=== PATIENT | female | born 1935 | race Caucasian/White ===

== ENCOUNTER → 2018-03-11 | Outpatient (CLI) | payer MEDICARE | END | disposition home or self-care (01) | LOC: LABPAT 09:44 | PROVIDERS: ATTEND Orthopaedic Surgery | DX: Z01.812 Encounter for preprocedural laboratory examination (principal); M16.11 Unilateral primary osteoarthritis, right hip | CPT/HCPCS: 87070 ==

== ENCOUNTER 2018-03-18 06:38 | Inpatient (IN) | payer MEDICARE, OTHER ==
[2018-03-11 12:40] VITALS: BMI 28.2
--- NOTE | 2018-03-17 08:20 | HP ---
HISTORY AND PHYSICAL REASON FOR ADMISSION: Surgery 03/18/2018. HISTORY OF PRESENT ILLNESS: Elena Bingham is an 82-year-old patient seen with symptomatic right hip osteoarthritis. We discussed options. She elected to proceed with right total hip arthroplasty. Consent regarding procedure was obtained. Medical clearance was provided by Dr. Baez's office. PAST MEDICAL HISTORY: Hypothyroidism, hypertension. PAST SURGICAL HISTORY: Left total hip arthroplasty. MEDICATIONS: Levothyroxine, nortriptyline, Ziac. ALLERGIES: PENICILLIN, SULFA, IODINE. SOCIAL HISTORY: Patient denies tobacco. PHYSICAL EXAMINATION: Physical evaluation of the right hip, there is a limited range of motion with severe pain. There is diffuse tenderness about the hip girdle. Positive impingement sign. Straight leg raise negative. Distal neurovascular exam is intact. RADIOGRAPHS: Radiographs of the right hip revealed severe osteoarthritic changes. IMPRESSION: 1. Right hip osteoarthritis. 2. Hypertension. 3. Hypothyroidism. PLAN: Right total hip arthroplasty. Surgery scheduled for 03/18/2018. MMODL / IJN: [id number] /
[~2018-03-18 06:38] MED LIST: ACETAMINOPHEN TAB 500 MG TAB PO ONE; HYDROmorphone 1 MG/ML 1 ML SYRINGE IVP PRN; LIDOCAINE 1% 20 ML VIAL (10MG/ML) FOR IV START INTRADERMA PRN; MELOXICAM 7.5 MG TAB PO ONE; ONDANSETRON 4 MG/2 ML VIAL IVP ONE; TRANEXAMIC ACID 1,000 MG in SODIUM CHLORIDE 0.9% 50 ML IVPB ONE; VANCOMYCIN 1,250 MG in SODIUM CHLORIDE 0.9% 250 ML IVPB ONE
[2018-03-18] MEDS: LACTATED RINGERS 1,000 ML IV SCH ×3 (07:52→21:39)
[2018-03-18] MEDS ORDERED: PROPOFOL 10 MG/ML 20 ML VIAL IV ONE (09:58)
[2018-03-18] MEDS ORDERED: SODIUM CHLORIDE 0.9% 100 ML BAG ONE (09:58)
[2018-03-18] MEDS ORDERED: diphenhydrAMINE 50 MG/ML 1 ML VIAL ONE (09:58)
[2018-03-18] MEDS ORDERED: ePHEDrine SULFATE/0.9% NACL/PF 50 MG/5 ML SYRINGE IV ONE (09:58)
[2018-03-18] MEDS ORDERED: MIDAZOLAM 2 MG/2 ML VIAL ONE (09:58)
[2018-03-18] MEDS ORDERED: fentaNYL (PF) 50 MCG/ML 2 ML AMP ONE (09:58)
[2018-03-18] MEDS ORDERED: TRANEXAMIC ACID 1,000 MG/10 ML VIAL ONE (09:58)
[2018-03-18] MEDS ORDERED: CLINDAMYCIN 1,800 MG in SODIUM CHLORIDE 0.9% IRRIGATIO 3,000 ML IRRIGATION ONE (10:28)
[2018-03-18] MEDS: ROPIVACAINE 246.25 MG, EPINEPHrine 0.5 MG, KETOROLAC 30 MG, cloNIDine HCL/PF 80 MCG, WA... MISCELLANE ONE ×10 (10:39→11:21)
[2018-03-18] MEDS ORDERED: LACTATED RINGERS 1,000 ML IV ONE ×2 (11:11)
[2018-03-18] MEDS ORDERED: HYDROmorphone 1 MG/ML 1 ML SYRINGE IVP PRN ×3 (11:42)
[2018-03-18] MEDS ORDERED: ONDANSETRON 4 MG/2 ML VIAL IVP PRN (11:42)
[2018-03-18] MEDS ORDERED: NALOXONE 0.4 MG/ML 1 ML VIAL IV PRN (11:42)
[2018-03-18] MEDS ORDERED: HYDROcodone/APAP 7.5-325MG 1 EACH TAB PO PRN (11:42)
[2018-03-18] MEDS ORDERED: traMADol 50 MG TAB PO PRN (11:42)
--- NOTE | 2018-03-18 11:42 | P.OP ---
Date of Procedure: 03/18/18 Preoperative Diagnosis: Right hip osteoarthritis Postoperative Diagnosis: Right hip osteoarthritis Procedure(s) Performed: Direct anterior right total hip arthroplasty Implants: 1. Depuy Corail size 12 standard collar press-fit femoral stem 2. Depuy pinnacle 52 mm press-fit acetabular shell 3. Depuy pinnacle polyethylene acetabular liner neutral 36 mm ID 52 mm OD 4. Depuy metal femoral head 36 mm -2 Anesthesia: local, spinal Surgeon: Bismark Cortes Cryptoanalysis Teacher #1: Eric King Estimated Blood Loss (ml): 125 Pathology: other (Femoral head) Condition: stable Disposition: PACU Indications for Procedure: 82-year-old patient seen with symptomatic right hip osteoarthritis. After treatment options were discussed, she elected to proceed with total hip arthroplasty. Operative Findings: See description of procedure Description of Procedure: The patient was taken to the operative suite. Patient underwent a final anesthetic by the department of anesthesia. Patient was then transferred to the [place] table. Patient was given preoperative IV antibiotics and TXA. Both lower extremities were placed in standard leg spars. The hip was then prepped and draped in the normal sterile orthopedic fashion. A standard anterior incision was made beginning 3 cm lateral and 1 cm distal to the ASIS extending 10 cm. Dissection was then carried down through the subcutaneous soft tissues down to the fascia overlying the tensor fascia bob. An incision was now made through the fascia. Careful dissection was taken down exposing the tensor fascia bob muscle. A Cobra retractor was now placed along the medial femoral neck and a second one along the lateral femoral neck. The venous circumflex vessels were now identified, cauterized and clipped. We identified the anterior hip capsule. An incision was made through the hip capsule along the lateral border. I performed a partial anterior capsulectomy. Retractors were now placed around the femoral neck itself. A femoral neck cut was now made with a sagittal saw. It was completed with an osteotome at the lateral neck area. The femoral head was now removed without difficulty. There was advanced osteoarthritis of both the femoral head and acetabulum. The extremity was now rotated to 45 of external rotation. It was locked in position. Residual labrum was now debrided out. Serial reaming was performed of the acetabulum while Roge ALMANZA assisted holding an anterior retractor for exposure. Once we reached the appropriate size and a trial was position and fit nicely. The appropriate size was now chosen opened and made available. It was introduced into the acetabulum without difficulty. The C-arm/fluoroscopy was now brought into the operative field. We made sure we had a true AP pelvic view. We now under direct C-arm/fluoroscopy introduced into the acetabular component with appropriate version and inclination. I held the cup in appropriate position well Roge ALMANZA used a mallet to seat the acetabular component. I noted the component now to be well seated and stable. Acetabular cup introduce her was removed. The C-arm was pulled back. An appropriate liner was introduced and clicked into position. It was felt to be stable. At this point retractors were removed. The extremity was now placed into 120 external rotation with no traction. The leg was now dropped to the ground and adducted. Appropriate retractors were now positioned along the proximal femur. We also placed our femoral look into position. Additional capsular releasing was performed to gain access to the proximal femur. We now used a box osteotome. A canal finder was now utilized. Serial broaching was now performed with the assistance of Roge ALMANZA tapping the broaches down with a mallet while held the broach in appropriate rotation and position. This was done until we reached the appropriate size with good overall rotational stability. Appropriate calcar planing was performed. A trial head/neck was placed into position. The hip was now reduced. The C-arm/fluoroscopy was brought back into the operative field. A spot film was obtained of the nonoperative hip. A spot film was obtained of the trial components. Overlays were performed, we noted good overall alignment and positioning for determining leg length. The C- arm/fluoroscopy was pulled back. Retractors were repositioned and the hip was dislocated. The leg was again taken down to the ground and adducted. Appropriate retractors were repositioned as well as the femoral hook. All trial components were removed. The femoral implant was opened along with the femoral head. The femoral implant was introduced on the appropriate handle into our pre-broached area. I held the component position well Roge ALMANZA used a mallet to seat the femoral component. The femoral component was now noted to be well seated and stable.. The femoral head was introduced with good positioning and fixation noted. Retractors were now removed. The hip was now reduced. There appeared be good positioning of the hip confirmed on intraoperative fluoroscopy. Spot films were obtained to document this. A second gram of TXA was given. The deep and superficial soft tissues were infiltrated with local analgesic. Bipolar cautery had been utilized intermittently through the procedure for hemostasis. The wound was irrigated copiously with pulse lavage mechanical irrigation. The fascia was repaired with Vicryl suture. The subcutaneous soft tissues were repaired in layers with Vicryl suture. The skin was approximated with pernio/Dermabond. Sterile dressings were applied. Patient was then awakened, transferred to a bed and taken to recovery in stable condition. Roge ALMANZA assisted with the complex procedure.
--- NOTE | 2018-03-18 13:36 | FL ---
Fluoroscopy HISTORY: Right hip replacement 7 seconds fluoroscopy time supplied to the referring clinician. 1 intraoperative C-arm images docume nt the procedure. See dictated report from orthopedic surgery.
--- NOTE | 2018-03-18 14:05 | P.CONS ---
History of Present Illness - Reason for Consult Consult date: 03/18/18 Medical management Requesting physician: Bimsark Cortes - Chief Complaint Status post right total hip arthroplasty - History of Present Illness This is a 82-year-old female, patient of Dr. Baez. She has a known past medical history of hypertension, hypothyroidism, anxiety, depression and osteoarthritis. Patient underwent a direct anterior right total hip arthroplasty with Dr. Cortes today. She tolerated surgery well no consultations. Estimated blood loss 125 mL. She is reporting some right hip pain in which she received a pain pill. She denies any chest pain or shortness of breath. Denies any nausea or vomiting. Denies any fever chills or sweats. Reports a bowel movement yesterday. Denies any burning with urination. We have been consulted for medical management during patient's hospitalization. Review of Systems Please refer to HPI otherwise unremarkable Past Medical History Past Medical History: Eye Disorder, Hypertension, Osteoarthritis (OA), Thyroid Disorder Additional Past Medical History / Comment(s): 03/08/15 Pt admitted to floor with total L hip arthroplasty. Other HX: GLASSES DAILY USE, ARTHRITIS LOWER BACK & HIPS History of Any Multi-Drug Resistant Organisms: None Reported Past Surgical History: Joint Replacement, Orthopedic Surgery Additional Past Surgical History / Comment(s): 03/08/15 Total L hip arthroplasty. Other SX: ORIF LT WRIST 2008? Past Anesthesia/Blood Transfusion Reactions: Previous Problems w/ Anesthesia Additional Past Anesthesia/Blood Transfusion Reaction / Comm: HARD TO WAKE UP Past Psychological History: Anxiety Additional Psychological History / Comment(s): Pt resides with her spouse of 59 yrs. She just recently started using a walker. She is independent. She drives. Smoking Status: Never smoker Past Alcohol Use History: None Reported - Past Family History Brother(s) Family Medical History: Cancer Sister(s) Family Medical History: Cancer Father Family Medical History: Cancer Additional Family Medical History / Comment(s): LEUKEMIA Mother Family Medical History: Myocardial Infarction ([place]) Medications and Allergies Home Medications Medication Instructions Recorded Confirmed Type Ascorbic Acid [Vitamin C with Brea 500 mg PO DAILY 03/01/15 03/18/18 History Hips] Cholecalciferol [Vitamin D3] 2,000 unit PO DAILY 03/01/15 03/18/18 History Levothyroxine Sodium [Synthroid] 50 mcg PO DAILY 03/01/15 03/18/18 History Nortriptyline [Pamelor] 25 mg PO DAILY 03/01/15 03/18/18 History Ubidecarenone [Co Q-10] 200 mg PO DAILY 03/01/15 03/18/18 History chlordiazePOXIDE HCl [Librium] 25 mg PO DAILY 03/01/15 03/18/18 History [place]-3 Fatty Acids [[place]-3] 1,000 mg PO DAILY 03/08/15 03/18/18 History Acetaminophen [Tylenol Extra 500 mg PO DIRECTED PRN 03/11/18 03/18/18 History Strength] Bisoprolol-Hctz 10-6.25 mg [Ziac 1 each PO DAILY 03/11/18 03/18/18 History 10-6.25] Cyanocobalamin [Vitamin B-12] 400 mcg PO DAILY 03/11/18 03/18/18 History Losartan Potassium [Cozaar] 100 mg PO DAILY 03/11/18 03/18/18 History Magnesium 400 mg PO DAILY 03/11/18 03/18/18 History Multivitamins, Thera [Multivitamin 1 tab PO DAILY 03/11/18 03/18/18 History (formulary)] Vitamin C/Biotin [Hair, Skin and 1 tab PO DAILY 03/11/18 03/18/18 History Nails] Allergies Allergy/AdvReac Type Severity Reaction Status Date / Time iodine Allergy Anaphylaxis Verified 03/18/18 07:47 Penicillins Allergy Anaphylaxis Verified 03/18/18 07:47 - Almost Sulfa (Sulfonamide Allergy Anaphylaxis- Verified 03/18/18 07:47 Antibiotics) Almost amlodipine [From [facility]] AdvReac Unknown Unknown Verified 03/18/18 07:47 MULTIPLE DRUG ALLERGIES Allergy Severe STATES Uncoded 03/18/18 07:47 (UNKNOWN) SEVERY REACTIONS TO SEVERAL MEDS WITH UNKNOWN NAMES. Physical Exam Vitals: Vital Signs Temp Pulse Resp BP Pulse Ox 03/18/18 12:57 68 18 115/56 99 03/18/18 12:41 71 18 111/52 100 03/18/18 12:26 73 18 130/63 99 03/18/18 12:10 67 16 130/63 98 03/18/18 11:56 98.5 F 63 18 159/84 98 03/18/18 07:50 97.6 F 74 18 191/82 95 Intake and Output 03/17/18 03/18/18 03/18/18 22:59 06:59 14:59 Intake Total 1451 Output Total 125 Balance 1326 Intake: IV 1451 Output: Estimated Blood Loss 125 Head normocephalic Neck supple Lungs clear to auscultation bilaterally no wheezing or crackles Heart regular rate and rhythm S1-S2, no rub or gallop Abdomen is soft nontender nondistended positive bowel sounds no hepatosplenomegaly Extremities no edema. Right hip dressing clean dry and intact. Ice pack in place. No calf tenderness. Patient is able to wiggle toes on the right foot. No numbness reported Neuro alert and orientated to 3 Assessment and Plan Assessment: 1. Osteoarthritis of the right hip status post direct anterior right total hip arthroplasty. Continue pain control per orthopedic protocol. Continue Lovenox for DVT prophylaxis. Continue with orthopedic postop orders with PT OT 2. Essential hypertension: Blood pressure stable resume Ziac and losartan. Parameters place around the Ziac to hold for systolic blood pressure less than 120 3. Hypothyroidism continue the Synthroid 4. Generalized anxiety disorder continue Librium 5. Depression continue the nortriptyline GI prophylaxis Pepcid and DVT prophylaxis Lovenox Check CBC and CMP in a.m. Thank you for this consultation. We will continue to follow along during patient's hospitalization Time with Patient: Greater than 30 (Greater than 60% of the total time spent in counseling and coordination of care.I performed an examination of the patient and discussed their management with the physician Anchorman. I have reviewed the Physician Anchorman's notes and agree with the documented findings and plan of care)
[2018-03-18] MEDS: LEVOTHYROXINE 50 MCG TAB PO SCH (15:18)
--- NOTE | 2018-03-18 16:18 | XR ---
Right hip HISTORY: Status post right hip arthroplasty Single frontal view of the right hip Patient is status post right hip arthroplasty. Lucency in the soft tissues is compatible with postop state. There is no fracture or dislocation. Anatomic alignment is present. IMPRESSION: Orthopedic follow-up.
[2018-03-18] MEDS: HYDROcodone/APAP 7.5-325MG 1 EACH TAB PO PRN (18:29)
[2018-03-18] MEDS: SENNOSIDES-DOCUSATE SODIUM 1 EACH TAB PO SCH (20:27)
[2018-03-19] MEDS: HYDROcodone/APAP 7.5-325MG 1 EACH TAB PO PRN (00:38)
[2018-03-19] MEDS: LACTATED RINGERS 1,000 ML IV SCH ×3 (02:58→21:43)
[2018-03-19] MEDS: LEVOTHYROXINE 50 MCG TAB PO SCH (06:24)
[2018-03-19 07:02] LABS: Basophils % (A) 0 %; Eosinophils # (A) 0.1 k/uL (0-0.7); Eosinophils % (A) 1 %; HGB 11.3 gm/dL (11.4-16.0); Lymphocytes # (A) 1.6 k/uL (1.0-4.8); Lymphocytes % (A) 15 %; MCH 30.1 pg (25.0-35.0); MCHC 32.4 g/dL (31.0-37.0); MCV 92.9 fL (80.0-100.0); Mean Platelet Volume 6.8; Monocytes # (A) 0.6 k/uL (0-1.0); Monocytes % (A) 6 %; Neutrophils % (A) 77 %; Platelet Count 218 k/uL (150-450); RBC 3.76 m/uL (3.80-5.40); RDW 13.3 % (11.5-15.5); WBC 10.3 k/uL (3.8-10.6)
[2018-03-19 07:16] LABS: Albumin 2.9 g/dL (3.5-5.0); Calcium 8.8 mg/dL (8.4-10.2); Potassium 4.3 mmol/L (3.5-5.1); Total Bilirubin 1.2 mg/dL (0.2-1.3); Total Protein 5.3 g/dL (6.3-8.2)
[2018-03-19] MEDS: MAGNESIUM OXIDE 400 MG TAB PO SCH (08:35)
[2018-03-19] MEDS: CYANOCOBALAMIN 500 MCG TAB PO SCH (08:36)
[2018-03-19] MEDS: CHOLECALCIFEROL 1,000 UNIT TAB PO SCH (08:36)
[2018-03-19] MEDS: LOSARTAN 50 MG TAB PO SCH (08:37)
[2018-03-19] MEDS: ENOXAPARIN 40 MG/0.4 ML SYRINGE SQ SCH ×2 (08:37→10:25)
[2018-03-19] MEDS: chlordiazePOXIDE 25 MG CAP PO SCH (08:38)
[2018-03-19] MEDS: NORTRIPTYLINE 25 MG CAP PO SCH (08:38)
[2018-03-19] MEDS ORDERED: NON-FORMULARY DRUG (Ubidecarenone [Co Q-10] 200 MG) PO SCH (09:00)
[2018-03-19] MEDS ORDERED: BISOPROLOL-HCTZ 10-6.25 MG 1 EACH TAB PO SCH (09:00)
[2018-03-19] MEDS ORDERED: FAMOTIDINE 20 MG TAB PO SCH (09:00)
[2018-03-19] MEDS ORDERED: NON-FORMULARY DRUG (Omega-3 Fatty Acids [Omega-3] 1,000 MG) PO SCH (09:00)
[2018-03-19] MEDS: PANTOPRAZOLE 40 MG/10 ML VIAL IVP SCH (11:38)
--- NOTE | 2018-03-19 12:37 | P.PN ---
Subjective Progress Note Date: 03/19/18 Principal diagnosis: Status post right total hip arthroplasty Patient is here today resting in her hospital bed, her is present at bedside. Patient has had nausea and vomiting this morning. We believe it is related to the [place] that she received today. She has ambulated well, she's urinating on her own. She denies any chest pain or shortness of breath. Objective - Vital Signs Vital signs: Vital Signs Temp 98.3 F 03/19/18 07:00 Pulse 76 03/19/18 07:00 Resp 16 03/19/18 07:00 BP 110/69 03/19/18 07:00 Pulse Ox 95 03/19/18 07:00 Intake & Output 03/18/18 03/19/18 03/19/18 18:59 06:59 18:59 Intake Total 1953 1050 240 Output Total 125 Balance 1828 1050 240 Weight 75.75 kg Intake: IV 1451 Intake, IV Titration 280 1050 Amount Lactated Ringers 1,000 ml 280 1050 @ 70 mls/hr IV .[id number] [facility] Rx#:[id number] Oral 222 240 Output: Estimated Blood Loss 125 Other: Voiding Method Toilet # Voids 1 2 - Exam Right lower extremity: Incision is clean, dry, and intact. The prineo tape is in good condition. There is minimal soft tissue swelling and ecchymosis surrounding the medial and lateral aspects of the incision. Calf is soft, no tenderness with palpation. Plantar flexion, dorsiflexion, EHL, FHL are intact. Sensory exam to light touch throughout the extremity is intact, dorsal pedis pulses 2+. - Labs CBC & Chem 7: 03/19/18 06:26 03/19/18 06:26 Labs: Abnormal Lab Results - Last 24 Hours (Table) 03/19/18 03/19/18 Range/Units 06:26 06:26 RBC 3.76 L (3.80-5.40) m/uL Hgb 11.3 L (11.4-16.0) gm/dL Neutrophils # 8.0 H (1.3-7.7) k/uL Glucose 116 H (74-99) mg/dL AST 44 H (14-36) U/L Total Protein 5.3 L (6.3-8.2) g/dL Albumin 2.9 L (3.5-5.0) g/dL Assessment and Plan Plan: Assessment: Postoperative day 1 status post right total hip arthroplasty Plan: Pain control, hold narcotic medication, utilize Tylenol Sulfate as needed for nausea Continue work with physical therapy GI and DVT prophylaxis, continue current medication Medical recommendations Hopeful discharge tomorrow Time with Patient: Less than 30
--- NOTE | 2018-03-19 13:41 | P.PN ---
Subjective Progress Note Date: 03/19/18 This is a 82-year-old female, patient of Dr. Baez. She has a known past medical history of hypertension, hypothyroidism, anxiety, depression and osteoarthritis. Patient underwent a direct anterior right total hip arthroplasty with Dr. Cortes today. She tolerated surgery well no consultations. Estimated blood loss 125 mL. She is reporting some right hip pain in which she received a pain pill. She denies any chest pain or shortness of breath. Denies any nausea or vomiting. Denies any fever chills or sweats. Reports a bowel movement yesterday. Denies any burning with urination. We have been consulted for medical management during patient's hospitalization. 03/19/2018 patient had nausea and vomiting this morning likely related to her narcotics. Narcotics have been discontinued. Patient evaluated later in the morning was still having some nausea IV Protonix has been ordered. Continue with the Zofran as well. Patient's blood pressures have been on the lower side 110/69. Blood pressure medications were held this morning. Ziac has been discontinued due to lower blood pressure as well as the vomiting. Kidney functions are normal at this time. Parameters have been placed around the losartan to hold for systolic pressure less than 120. Patient denies any chest pain or shortness of breath. Denies any dizziness or lightheadedness. Passing gas no bowel movement yet. Denies any burning with urination. Pain is controlled with Tylenol. Objective - Vital Signs Vital signs: Vital Signs Temp 98.3 F 03/19/18 07:00 Pulse 76 03/19/18 07:00 Resp 16 03/19/18 07:00 BP 110/69 03/19/18 07:00 Pulse Ox 95 03/19/18 07:00 Intake & Output 03/18/18 03/19/18 03/19/18 18:59 06:59 18:59 Intake Total 1953 1050 240 Output Total 125 Balance 1828 1050 240 Weight 75.75 kg Intake: IV 1451 Intake, IV Titration 280 1050 Amount Lactated Ringers 1,000 ml 280 1050 @ 70 mls/hr IV .[id number] [facility] Rx#:[id number] Oral 222 240 Output: Estimated Blood Loss 125 Other: Voiding Method Toilet # Voids 1 2 - Exam Head normocephalic Neck supple Lungs clear to auscultation bilaterally no wheezing or crackles Heart regular rate and rhythm S1-S2, no rub or gallop Abdomen is soft nontender nondistended positive bowel sounds no hepatosplenomegaly Extremities no edema Neuro alert and orientated to 3 - Labs CBC & Chem 7: 03/19/18 06:26 11 06:26 Labs: Abnormal Lab Results - Last 24 Hours (Table) 03/19/18 03/19/18 Range/Units 06:26 06:26 RBC 3.76 L (3.80-5.40) m/uL Hgb 11.3 L (11.4-16.0) gm/dL Neutrophils # 8.0 H (1.3-7.7) k/uL Glucose 116 H (74-99) mg/dL AST 44 H (14-36) U/L Total Protein 5.3 L (6.3-8.2) g/dL Albumin 2.9 L (3.5-5.0) g/dL Assessment and Plan Assessment: 1. Osteoarthritis of the right hip status post direct anterior right total hip arthroplasty. Continue Lovenox for DVT prophylaxis. Continue with orthopedic postop orders with PT OT. Continue with Tylenol as needed for pain 2. Essential hypertension: Blood pressures are on the lower side. Last blood pressure 110/69. We'll discontinue the Ziac especially since patient is vomiting to reduce risk of dehydration. Place parameters around the losartan to hold for systolic blood pressure less than 120 3. Hypothyroidism continue the Synthroid 4. Generalized anxiety disorder continue Librium 5. Depression continue the nortriptyline 6. Nausea and vomiting likely secondary to narcotics. Agree with discontinuing the narcotics. Continue with the Zofran as needed. Also will discontinue Pepcid and place patient on IV Protonix. Anticipate discharge tomorrow GI prophylaxis Pepcid and DVT prophylaxis Lovenox I performed an examination of the patient and discussed their management with the physician Code And Test Clerk. I have reviewed the Physician Code And Test Clerk's notes and agree with the documented findings and plan of care
[2018-03-19] MEDS: MULTIVITAMINS, THERA 1 EACH TAB PO SCH (15:22)
[2018-03-19] MEDS: SENNOSIDES-DOCUSATE SODIUM 1 EACH TAB PO SCH (21:43)
[2018-03-20] MEDS: ACETAMINOPHEN TAB 325 MG TAB PO PRN ×4 (00:17→20:03)
[2018-03-20] MEDS: LACTATED RINGERS 1,000 ML IV SCH ×2 (00:55→20:58)
[2018-03-20] MEDS: LEVOTHYROXINE 50 MCG TAB PO SCH (06:32)
[2018-03-20 07:50] LABS: Albumin 2.5 g/dL (3.5-5.0); Calcium 8.6 mg/dL (8.4-10.2); Potassium 4.4 mmol/L (3.5-5.1); Total Bilirubin 1.3 mg/dL (0.2-1.3); Total Protein 4.9 g/dL (6.3-8.2)
[2018-03-20] MEDS: CHOLECALCIFEROL 1,000 UNIT TAB PO SCH (08:43)
[2018-03-20] MEDS: ENOXAPARIN 40 MG/0.4 ML SYRINGE SQ SCH (08:43)
[2018-03-20] MEDS: PANTOPRAZOLE 40 MG/10 ML VIAL IVP SCH (08:43)
[2018-03-20] MEDS: CYANOCOBALAMIN 500 MCG TAB PO SCH (08:44)
[2018-03-20] MEDS: MAGNESIUM OXIDE 400 MG TAB PO SCH (08:44)
[2018-03-20] MEDS: NORTRIPTYLINE 25 MG CAP PO SCH (08:44)
[2018-03-20] MEDS: chlordiazePOXIDE 25 MG CAP PO SCH (08:45)
[2018-03-20] MEDS: LOSARTAN 50 MG TAB PO SCH (10:26)
--- NOTE | 2018-03-20 10:46 | P.PN ---
Subjective Progress Note Date: 03/20/18 This is a 82-year-old female, patient of Dr. Baez. She has a known past medical history of hypertension, hypothyroidism, anxiety, depression and osteoarthritis. Patient underwent a direct anterior right total hip arthroplasty with Dr. Cortes today. She tolerated surgery well no consultations. Estimated blood loss 125 mL. She is reporting some right hip pain in which she received a pain pill. She denies any chest pain or shortness of breath. Denies any nausea or vomiting. Denies any fever chills or sweats. Reports a bowel movement yesterday. Denies any burning with urination. We have been consulted for medical management during patient's hospitalization. 03/19/2018 patient had nausea and vomiting this morning likely related to her narcotics. Narcotics have been discontinued. Patient evaluated later in the morning was still having some nausea IV Protonix has been ordered. Continue with the Zofran as well. Patient's blood pressures have been on the lower side 110/69. Blood pressure medications were held this morning. Ziac has been discontinued due to lower blood pressure as well as the vomiting. Kidney functions are normal at this time. Parameters have been placed around the losartan to hold for systolic pressure less than 120. Patient denies any chest pain or shortness of breath. Denies any dizziness or lightheadedness. Passing gas no bowel movement yet. Denies any burning with urination. Pain is controlled with Tyleno On 03/20/2018 patient is feeling improved from yesterday. Patient is alert and oriented 3. Patient's blood pressure 111/62. At this time patient denies chest pain or shortness of breath. Patient denies nausea vomiting or diarrhea. Patient denies any urinary burning or frequency Objective - Vital Signs Vital signs: Vital Signs Temp 98.4 F 03/20/18 07:00 Pulse 72 03/20/18 07:00 Resp 12 03/20/18 07:00 BP 111/62 03/20/18 07:00 Pulse Ox 95 03/20/18 07:00 Intake & Output 03/19/18 03/20/18 03/20/18 18:59 06:59 18:59 Intake Total 462 700 Balance 462 700 Intake: Intake, IV Titration 700 Amount Lactated Ringers 1,000 ml 700 @ 70 mls/hr IV .[id number] [facility] Rx#:[id number] Oral 462 Other: Voiding Method Toilet # Voids 1 1 - Exam Head normocephalic Neck supple Lungs clear to auscultation bilaterally no wheezing or crackles Heart regular rate and rhythm S1-S2, no rub or gallop Abdomen is soft nontender nondistended positive bowel sounds no hepatosplenomegaly Extremities no edema Neuro alert and orientated to 3 - Labs CBC & Chem 7: 03/19/18 06:26 03/20/18 07:01 Labs: Abnormal Lab Results - Last 24 Hours (Table) 03/20/18 Range/Units 07:01 AST 37 H (14-36) U/L Total Protein 4.9 L (6.3-8.2) g/dL Albumin 2.5 L (3.5-5.0) g/dL Assessment and Plan Assessment: 1. Osteoarthritis of the right hip status post direct anterior right total hip arthroplasty. Continue Lovenox for DVT prophylaxis. Continue with orthopedic postop orders with PT OT. Continue with Tylenol as needed for pain 2. Essential hypertension: Blood pressures are on the lower side. Last blood pressure 110/69. We'll discontinue the Ziac especially since patient is vomiting to reduce risk of dehydration. Place parameters around the losartan to hold for systolic blood pressure less than 120 3. Hypothyroidism continue the Synthroid 4. Generalized anxiety disorder continue Librium 5. Depression continue the nortriptyline 6. Nausea and vomiting likely secondary to narcotics. Agree with discontinuing the narcotics. Continue with the Zofran as needed. Also will discontinue Pepcid and place patient on IV Protonix. Patient planning to go home with home healthcare is cleared with orthopedic services GI prophylaxis Pepcid and DVT prophylaxis Lovenox I performed an examination of the patient and discussed their management with the Nurse Practitioner. I have reviewed the Nurse Practitioner's notes and agree with the documented findings and plan of care
[2018-03-20] MEDS: MULTIVITAMINS, THERA 1 EACH TAB PO SCH (12:44)
--- NOTE | 2018-03-20 13:23 | P.PN ---
Subjective Progress Note Date: 03/20/18 Principal diagnosis: Status post right total hip arthroplasty Patient is here today resting in her hospital bed, her is present at bedside. Nausea has improved since yesterday. She has ambulated well, she's urinating on her own. She denies any chest pain or shortness of breath. Objective - Vital Signs Vital signs: Vital Signs Temp 98.4 F 03/20/18 07:00 Pulse 72 03/20/18 07:00 Resp 12 03/20/18 07:00 BP 111/62 03/20/18 07:00 Pulse Ox 95 03/20/18 07:00 Intake & Output 03/19/18 03/20/18 03/20/18 18:59 06:59 18:59 Intake Total 462 700 Balance 462 700 Intake: Intake, IV Titration 700 Amount Lactated Ringers 1,000 ml 700 @ 70 mls/hr IV .[id number] Rx#:[id number] Oral 462 Other: Voiding Method Toilet # Voids 1 1 - Exam Right lower extremity: Incision is clean, dry, and intact. The prineo tape is in good condition. There is minimal soft tissue swelling and ecchymosis surrounding the medial and lateral aspects of the incision. Calf is soft, no tenderness with palpation. Plantar flexion, dorsiflexion, EHL, FHL are intact. Sensory exam to light touch throughout the extremity is intact, dorsal pedis pulses 2+. - Labs CBC & Chem 7: 03/19/18 06:26 03/20/18 07:01 Labs: Abnormal Lab Results - Last 24 Hours (Table) 03/20/18 Range/Units 07:01 AST 37 H (14-36) U/L Total Protein 4.9 L (6.3-8.2) g/dL Albumin 2.5 L (3.5-5.0) g/dL Assessment and Plan Plan: Assessment: Postoperative day #2 status post right total hip arthroplasty Plan: Pain control, hold narcotic medication, utilize Tylenol Sulfate as needed for nausea Continue work with physical therapy GI and DVT prophylaxis, continue current medication Medical recommendations Plan for discharge to home tomorrow Time with Patient: Less than 30
[2018-03-20] MEDS: SENNOSIDES-DOCUSATE SODIUM 1 EACH TAB PO SCH (20:03)
[2018-03-21] MEDS: LACTATED RINGERS 1,000 ML IV SCH ×2 (05:38→12:10)
[2018-03-21] MEDS: ACETAMINOPHEN TAB 325 MG TAB PO PRN ×2 (06:13→12:19)
[2018-03-21] MEDS: LEVOTHYROXINE 50 MCG TAB PO SCH (06:13)
[2018-03-21 07:16] LABS: Basophils % (A) 0 %; Eosinophils # (A) 0.1 k/uL (0-0.7); Eosinophils % (A) 2 %; HCT 30.5 % (34.0-46.0); Lymphocytes # (A) 2.2 k/uL (1.0-4.8); Lymphocytes % (A) 27 %; MCH 30.7 pg (25.0-35.0); MCHC 32.9 g/dL (31.0-37.0); MCV 93.4 fL (80.0-100.0); Mean Platelet Volume 6.8; Monocytes # (A) 0.4 k/uL (0-1.0); Monocytes % (A) 5 %; Neutrophils # (A) 5.1 k/uL (1.3-7.7); Neutrophils % (A) 64 %; Platelet Count 205 k/uL (150-450); RBC 3.27 m/uL (3.80-5.40); RDW 13.3 % (11.5-15.5)
[2018-03-21 07:22] LABS: ALT 23 U/L (9-52); AST 34 U/L (14-36); Albumin 2.5 g/dL (3.5-5.0); Alkaline Phosphatase 56 U/L (38-126); Anion Gap 3 mmol/L; Blood Urea Nitrogen 10 mg/dL (7-17); Calcium 8.4 mg/dL (8.4-10.2); Carbon Dioxide 28 mmol/L (22-30); Chloride 109 mmol/L (98-107); Glucose 94 mg/dL (74-99); Potassium 3.8 mmol/L (3.5-5.1); Sodium 140 mmol/L (137-145); Total Bilirubin 0.6 mg/dL (0.2-1.3); Total Protein 4.8 g/dL (6.3-8.2)
[2018-03-21] MEDS ORDERED: PANTOPRAZOLE 40 MG TABLET PO SCH (07:30)
--- NOTE | 2018-03-21 10:29 | P.PN ---
Subjective Progress Note Date: 03/21/18 Principal diagnosis: Status post right total hip arthroplasty Patient is here today resting in her hospital bed, her is present at bedside. She has ambulated well, she's urinating on her own. She denies any chest pain or shortness of breath. Objective - Vital Signs Vital signs: Vital Signs Temp 97.6 F 03/21/18 07:00 Pulse 74 03/21/18 07:00 Resp 18 03/21/18 07:00 BP 130/81 03/21/18 07:00 Pulse Ox 96 03/21/18 07:00 Intake & Output 03/20/18 03/21/18 03/21/18 18:59 06:59 18:59 Intake Total 720 240 Balance 720 240 Intake: Oral 720 240 Other: Voiding Method Toilet # Voids 2 - Exam Right lower extremity: Incision is clean, dry, and intact. The prineo tape is in good condition. There is minimal soft tissue swelling and ecchymosis surrounding the medial and lateral aspects of the incision. Calf is soft, no tenderness with palpation. Plantar flexion, dorsiflexion, EHL, FHL are intact. Sensory exam to light touch throughout the extremity is intact, dorsal pedis pulses 2+. - Labs CBC & Chem 7: 03/21/18 06:38 03/21/18 06:38 Labs: Abnormal Lab Results - Last 24 Hours (Table) 03/21/18 03/21/18 Range/Units 06:38 06:38 RBC 3.27 L (3.80-5.40) m/uL Hgb 10.0 L (11.4-16.0) gm/dL Hct 30.5 L (34.0-46.0) % Chloride 109 H (98-107) mmol/L Total Protein 4.8 L (6.3-8.2) g/dL Albumin 2.5 L (3.5-5.0) g/dL Assessment and Plan Plan: Assessment: Postoperative day #3 status post right total hip arthroplasty Plan: Pain control, utilize Tylenol Wound care discussed Home physical therapy and nursing after discharge GI and DVT prophylaxis, 81 mg aspirin twice a day Medical recommendations Discharge planning: Patient will be discharged home today Time with Patient: Less than 30
--- NOTE | 2018-03-21 10:31 | P.DS ---
Providers Date of admission: 03/18/18 06:38 Expected date of discharge: 03/21/18 Attending physician: Bismark Cortes Consults: 03/18/18 11:42 Consult Physician Routine Consulting Provider: Mata Pena Consult Reason/Comments: Medical management Do you want consulting provider notified?: Yes Primary care physician: [facility] Course: Date of admission: 03/18/2018 Date of discharge: 03/21/2018 Admission diagnosis: Status post right total hip arthroplasty Discharge diagnosis: Same Attending physician: Dr. Cortes Surgical procedures: Right total hip arthroplasty Brief history: Patient is a 82-year-old female with a history of progressive primary right hip osteoarthritis. At this point patient has failed conservative treatment measures and has opted to proceed with a elective right total hip arthroplasty. Hospital course: Details of patient's surgery can be found in operative report. Patient tolerated the procedure well and was subsequently transported to orthopedic floor. Patient's orthopeidc and medical care was provided daily. Patient had daily laboratory tests performed for evaluation of overall blood counts. Patient had daily physical therapy to include strengthening range of motion as well as education with walker ambulation. Patient was treated with Lovenox for their postoperative DVT prophylaxis during their inpatient stay. Patient was noted to have a relatively uneventful postoperative course. Patient reported satisfactory pain control with oral pain medications by postoperative day 0. Patient showed satisfactory progress with physical therapy. Patient moved steadily through the program and had no difficulty meeting the goals by postoperative day 3. Given patient's otherwise satisfactory course and having met physical therapy goals, plan is to discharge patient home on postoperative day 3. Discharge condition/disposition: Patient will be discharged home in stable condition. Discharge medications: Instructions are given on resumption of patient's normal daily medications per primary care recommendation, in addition patient will be prescribed aspirin 81 mg. Discharge instructions: 1. Wound care and infection precautions, keep incision dry and covered while showering, no lotions, creams, moisturizers. No soaking, tubs, pools, hottubs. Do not scrub over the incision. 2. Weight-bear as tolerated with walker / cane until follow-up. 3. Ice and elevate when necessary. Do not exceed 20 minutes per hour with ice pack. 4. Utilize compression sleeve until seen at first follow up appointment. 5. Visiting nursing care. 6. Home physical therapy. 7. Pain meds and anticoagulants per prescription. 8. Pain medication has potential to cause constipation. Increase oral fluid and fiber intake. Contact primary care provider if you have not had a bowel movement within 48 hours after discharge 9. No anti-inflammatory medication until discussed at first post operative visit, this including Motrin, Aleve, Mobic, Diclofenac. 10. Follow up in office at 2 weeks postop with Roge King PA-C 11. Follow up with your primary care doctor 7-10 days after discharge. 12. Contact [facility] with any questions, . Procedures: Right total hip arthroplasty Patient Condition at Discharge: Good Plan - Discharge Summary Discharge Rx Participant: No New Discharge Prescriptions: New Aspirin [Adult Low Dose Aspirin EC] 81 mg PO BID #60 tablet.dr Marshall Action Ascorbic Acid [Vitamin C with Brea Hips] 500 mg PO DAILY Ubidecarenone [Co Q-10] 200 mg PO DAILY Cholecalciferol [Vitamin D3] 2,000 unit PO DAILY Nortriptyline [Pamelor] 25 mg PO DAILY Levothyroxine Sodium [Synthroid] 50 mcg PO DAILY chlordiazePOXIDE HCl [Librium] 25 mg PO DAILY Conshohocken-3 Fatty Acids [Conshohocken-3] 1,000 mg PO DAILY Bisoprolol-Hctz 10-6.25 mg [Ziac 10-6.25] 1 tab PO DAILY Vitamin C/Biotin [Hair, Skin and Nails] 1 tab PO DAILY Multivitamins, Thera [Multivitamin (formulary)] 1 tab PO DAILY Magnesium 400 mg PO DAILY Cyanocobalamin [Vitamin B-12] 500 mcg PO DAILY Losartan Potassium [Cozaar] 100 mg PO DAILY Acetaminophen [Tylenol Extra Strength] 500 mg PO Q4H PRN PRN Reason: Pain Discharge Medication List Ascorbic Acid [Vitamin C with Brea Hips] 500 mg PO DAILY 03/01/15 [History] Cholecalciferol [Vitamin D3] 2,000 unit PO DAILY 03/01/15 [History] Levothyroxine Sodium [Synthroid] 50 mcg PO DAILY 03/01/15 [History] Nortriptyline [Pamelor] 25 mg PO DAILY 03/01/15 [History] Ubidecarenone [Co Q-10] 200 mg PO DAILY 03/01/15 [History] chlordiazePOXIDE HCl [Librium] 25 mg PO DAILY 03/01/15 [History] Conshohocken-3 Fatty Acids [Conshohocken-3] 1,000 mg PO DAILY 03/08/15 [History] Acetaminophen [Tylenol Extra Strength] 500 mg PO Q4H PRN 03/11/18 [History] Bisoprolol-Hctz 10-6.25 mg [Ziac 10-6.25] 1 tab PO DAILY 03/11/18 [History] Cyanocobalamin [Vitamin B-12] 500 mcg PO DAILY 03/11/18 [History] Losartan Potassium [Cozaar] 100 mg PO DAILY 03/11/18 [History] Magnesium 400 mg PO DAILY 03/11/18 [History] Multivitamins, Thera [Multivitamin (formulary)] 1 tab PO DAILY 03/11/18 [History ] Vitamin C/Biotin [Hair, Skin and Nails] 1 tab PO DAILY 03/11/18 [History] Aspirin [Adult Low Dose Aspirin EC] 81 mg PO BID #60 tablet. 03/21/18 [Rx] Follow up Appointment(s)/Referral(s): [facility], [NON-STAFF] - As Needed Eric King PAC [PHYSICIAN BROKERAGE MANAGER] - 2 Weeks Activity/Diet/Wound Care/Special Instructions: Orthopedic Discharge Instructions: 1. Wound care and infection precautions, keep incision dry and covered while showering, no lotions, creams, moisturizers. No soaking, pools, hot tubs. Do not scrub over incision. 2. Weight-bear as tolerated with walker / cane until follow-up. 3. Ice and elevate when necessary. Do not exceed 20 minutes per hour with ice pack. 4. Utilize compression sleeve until seen at first follow up appointment. 5. Pain meds and anticoagulants per prescription. 6. Pain medication has potential to cause constipation. Increase oral fluid and fiber intake. Contact primary care provider if you have not had a bowel movement within 48 hours after discharge. 7. No anti-inflammatory medication until discussed at first post operative visit, this including Motrin, Aleve, Mobic, Diclofenac. 8. Follow up in office at 2 weeks postop with Roge King PA-C 9. Follow up with your primary care doctor 7-10 days after discharge. 10. Contact [facility] with any questions, . Discharge Disposition: HOME SELF-CARE
[2018-03-21] MEDS: ENOXAPARIN 40 MG/0.4 ML SYRINGE SQ SCH (12:08)
[2018-03-21] MEDS: NORTRIPTYLINE 25 MG CAP PO SCH (12:08)
[2018-03-21] MEDS: CHOLECALCIFEROL 1,000 UNIT TAB PO SCH (12:08)
[2018-03-21] MEDS: CYANOCOBALAMIN 500 MCG TAB PO SCH (12:08)
[2018-03-21] MEDS: MAGNESIUM OXIDE 400 MG TAB PO SCH (12:09)
[2018-03-21] MEDS: chlordiazePOXIDE 25 MG CAP PO SCH (12:09)
[2018-03-21] MEDS: LOSARTAN 50 MG TAB PO SCH (12:09)
[2018-03-21] MEDS: MULTIVITAMINS, THERA 1 EACH TAB PO SCH (12:17)
--- NOTE | 2018-03-21 13:11 | P.PN ---
Subjective Progress Note Date: 03/21/18 This is a 82-year-old female, patient of Dr. Baez. She has a known past medical history of hypertension, hypothyroidism, anxiety, depression and osteoarthritis. Patient underwent a direct anterior right total hip arthroplasty with Dr. Cortes today. She tolerated surgery well no consultations. Estimated blood loss 125 mL. She is reporting some right hip pain in which she received a pain pill. She denies any chest pain or shortness of breath. Denies any nausea or vomiting. Denies any fever chills or sweats. Reports a bowel movement yesterday. Denies any burning with urination. We have been consulted for medical management during patient's hospitalization. 03/19/2018 patient had nausea and vomiting this morning likely related to her narcotics. Narcotics have been discontinued. Patient evaluated later in the morning was still having some nausea IV Protonix has been ordered. Continue with the Zofran as well. Patient's blood pressures have been on the lower side 110/69. Blood pressure medications were held this morning. Ziac has been discontinued due to lower blood pressure as well as the vomiting. Kidney functions are normal at this time. Parameters have been placed around the losartan to hold for systolic pressure less than 120. Patient denies any chest pain or shortness of breath. Denies any dizziness or lightheadedness. Passing gas no bowel movement yet. Denies any burning with urination. Pain is controlled with Tylenol. On 03/20/2018 patient is feeling improved from yesterday. Patient is alert and oriented 3. Patient's blood pressure 111/62. At this time patient denies chest pain or shortness of breath. Patient denies nausea vomiting or diarrhea. Patient denies any urinary burning or frequency 03/21/2018 patient is scheduled for discharge today. Pain is tolerable. Blood pressures have also shown improvement blood pressure this morning 130/81. His losartan and Ziac had been on hold. Hemoglobin has dropped from 11.3-10. Patient started on iron supplement. Denies any chest pain or shortness of breath. She is passing lots of gas. No bowel movement for 3 days. Denies any burning with urination. Objective - Vital Signs Vital signs: Vital Signs Temp 97.6 F 03/21/18 07:00 Pulse 74 03/21/18 07:00 Resp 18 03/21/18 07:00 BP 130/81 03/21/18 07:00 Pulse Ox 96 03/21/18 07:00 Intake & Output 03/20/18 03/21/18 03/21/18 18:59 06:59 18:59 Intake Total 720 240 Balance 720 240 Intake: Oral 720 240 Other: Voiding Method Toilet # Voids 2 - Exam Head normocephalic Neck supple Lungs clear to auscultation bilaterally no wheezing or crackles Heart regular rate and rhythm S1-S2, no rub or gallop Abdomen is soft nontender nondistended positive bowel sounds no hepatosplenomegaly Extremities no edema Neuro alert and orientated to 3 - Labs CBC & Chem 7: 03/21/18 06:38 03/21/18 06:38 Labs: Abnormal Lab Results - Last 24 Hours (Table) 03/21/18 03/21/18 Range/Units 06:38 06:38 RBC 3.27 L (3.80-5.40) m/uL Hgb 10.0 L (11.4-16.0) gm/dL Hct 30.5 L (34.0-46.0) % Chloride 109 H (98-107) mmol/L Total Protein 4.8 L (6.3-8.2) g/dL Albumin 2.5 L (3.5-5.0) g/dL Assessment and Plan Assessment: 1. Osteoarthritis of the right hip status post direct anterior right total hip arthroplasty. Started on aspirin 81 mg twice a day per orthopedic for DVT prophylaxis. Continue with orthopedic postop orders with PT OT. Continue with Tylenol as needed for pain 2. Essential hypertension: Blood pressures have shown improvement. At this time we'll restart the losartan 100 mg daily. Continue to hold the Ziac. We' ll have patient follow-up with her PCP on 03/28/2018 for further BP check 3. Hypothyroidism continue the Synthroid 4. Generalized anxiety disorder continue Librium 5. Depression continue the nortriptyline 6. Nausea and vomiting likely secondary to narcotics. Resolved patient is medically stable for discharge. We'll have her follow-up with her PCP in one week. Medications have been reviewed and reconciled. GI prophylaxis Pepcid and DVT prophylaxis Lovenox I performed an examination of the patient and discussed their management with the physician Biodiesel Engineering Manager. I have reviewed the Physician Biodiesel Engineering Manager's notes and agree with the documented findings and plan of care
[2018-03-21] MEDS ORDERED: HYDROmorphone 2 MG TAB PO PRN ×3 (13:25)
[2018-03-21 13:32] VITALS: BP 131/72; PULSE 78; RESP 16; TEMP 98.7
[2018-03-21] MEDS ORDERED: FERROUS SULFATE 325 MG TAB PO SCH (21:00)
== END 2018-03-21 16:01 | disposition home or self-care (01) | DRG 470 ==
LOC: 2ORMAIN 06:38 → 4SSUR 11:57
PROVIDERS: ADMIT Orthopaedic Surgery; ATTEND Orthopaedic Surgery
PROC: 0SR902A Replacement of Right Hip Joint with Metal on Polyethylene Synthetic Substitute, Uncemented, Open Approach (ICD-10-PCS; principal; 2018-03-18 09:55)
DX: M16.11 Unilateral primary osteoarthritis, right hip (principal); D62 Acute posthemorrhagic anemia; I10 Essential (primary) hypertension; E03.9 Hypothyroidism, unspecified; Z96.642 Presence of left artificial hip joint; Z79.890 Hormone replacement therapy; Z79.899 Other long term (current) drug therapy; Z88.0 Allergy status to penicillin; Z88.2 Allergy status to sulfonamides; Z91.048 Other nonmedicinal substance allergy status; H57.9 Unspecified disorder of eye and adnexa; M46.90 Unspecified inflammatory spondylopathy, site unspecified; Z80.6 Family history of leukemia; Z82.49 Family history of ischemic heart disease and other diseases of the circulatory system; F41.1 Generalized anxiety disorder; F32.9 Major depressive disorder, single episode, unspecified; R11.2 Nausea with vomiting, unspecified; R74.0 Nonspecific elevation of levels of transaminase and lactic acid dehydrogenase [LDH]; I95.89 Other hypotension
CPT/HCPCS: 73501; 80053; 85025; 86850; 86900; 86901; 88300

== ENCOUNTER 2021-02-23 11:56 | Day surgery (SDC) | payer MEDICARE, OTHER ==
[2021-02-22 09:42] VITALS: BMI 27.8
[~2021-02-23 11:56] MED LIST changes: -ACETAMINOPHEN TAB 500 MG TAB PO ONE; -HYDROmorphone 1 MG/ML 1 ML SYRINGE IVP PRN; +LACTATED RINGERS 1,000 ML IV SCH; +LIDOCAINE 1% (10MG/ML) FOR IV START INTRADERMA PRN; -LIDOCAINE 1% 20 ML VIAL (10MG/ML) FOR IV START INTRADERMA PRN; -MELOXICAM 7.5 MG TAB PO ONE; +MOXIFLOXACIN HCL 0.5% DROPS 3 ML BTL OP PRN; -ONDANSETRON 4 MG/2 ML VIAL IVP ONE; +TETRACAINE 0.5% OPHTH (PF) DROPS 4 ML BTL OP PRN; +TIMOLOL 0.5% OPHTH DROPS 5 ML BTL OP PRN; -TRANEXAMIC ACID 1,000 MG in SODIUM CHLORIDE 0.9% 50 ML IVPB ONE; -VANCOMYCIN 1,250 MG in SODIUM CHLORIDE 0.9% 250 ML IVPB ONE
[2021-02-23] MEDS: CYCLOPENTOLATE 1% OPHTH SOLN 2 ML BTL OP PRN ×3 (12:33→12:45)
[2021-02-23] MEDS: PHENYLEPHRINE 2.5% OPHTH DRP 2ML OP PRN ×3 (12:36→12:48)
[2021-02-23 12:39] VITALS: TEMP 98.7
[2021-02-23] MEDS ORDERED: MIDAZOLAM 2 MG/2 ML VIAL ONE (13:07)
[2021-02-23] MEDS ORDERED: fentaNYL (PF) 50 MCG/ML 2 ML AMP ONE (13:07)
[2021-02-23] MEDS ORDERED: EPINEPHrine (PF) 0.3 ML in BALANCED SALT IRRIG SOLN COMB2 500 ML IRRIGATION ONE (13:22)
[2021-02-23] MEDS ORDERED: HYALURONATE SODIUM INTRAOCULAR 1 EACH SYRINGE (12MG/ML) INTRAOCULA ONE (13:29)
[2021-02-23] MEDS ORDERED: BALANCED SALT IRRIG SOLN COMB2 15 ML IRRIG.SOLN IRRIGATION ONE (13:29)
[2021-02-23] MEDS ORDERED: LIDOCAINE 1% (PF) 10MG/ML VIAL INTRAARTIC ONE (13:30)
[2021-02-23] MEDS ORDERED: EPINEPHrine (PF) 1 MG/ML AMP MISCELLANE ONE (13:31)
--- NOTE | 2021-02-23 13:44 | P.OP ---
Date of Procedure: 02/23/21 Preoperative Diagnosis: NS Postoperative Diagnosis: same Procedure(s) Performed: PIOL, OD Implants: [id number] 19.50 Anesthesia: MAC Surgeon: Bill Corona Pathology: none sent Condition: stable Disposition: same day Indications for Procedure: blurry vision Operative Findings: no complications
[2021-02-23 13:49] VITALS: BP 136/76; RESP 16
[2021-02-23 14:05] VITALS: PULSE 62
--- NOTE | 2021-02-23 21:03 | OP ---
OPERATIVE REPORT DATE OF SERVICE: February 23, 2021 PROCEDURE: Phacoemulsification cataract and intraocular lens implant of the right eye. SURGEON: Dr. Bill Corona PREOPERATIVE DIAGNOSIS: Nuclear sclerosis. POSTOPERATIVE DIAGNOSIS: Nuclear sclerosis. OPERATION: Clear cornea phacoemulsification of cataract right/OD eye. ESTIMATED BLOOD LOSS: Zero. SPECIMEN TAKEN: None. NARRATIVE: After obtaining the appropriate consent, the patient was brought to the Operating Room where the patient was placed under cardiac monitoring and prepped and draped in the usual sterile manner. At the 11 o'clock position a 15 degree super sharp blade was used to create a paracentesis followed by instillation of 1% Xylocaine MPF 50:50 mix with BSS into the anterior chamber. This was followed by Amvisc. To stabilize the anterior chamber. At the 9 o'clock position a self-sealing corneal flap incision was created using 2.8 mm blanco keratome. A cystotome was used to initiate a continuous tear capsulorrhexis which was completed with the Utrata forceps. A Binkhorst cannula was used to hydrodissect the lens nucleus followed by hydrodelineation. Phacoemulsification of the lens was performed utilizing phacochop in 28.9 seconds at 22% power. The remaining cortical material was removed using the irrigation aspiration mode followed by additional 1% Xylocaine MPF into the anterior chamber followed by viscoelastic to stabilize the capsular bag. A [employer] MX 60E 19.5 diopter posterior chamber lens was placed into the capsular bag without difficulty. The remaining viscoelastic material was removed from the anterior chamber with the irrigation/aspiration. Balanced salt solution was used to normalize the intraocular pressure. The incision was checked for watertight integrity. The patient then received two drops of 0.5% timolol followed by two drops Vigamox, was lightly patched and shielded in the usual manner. There were no complications from the procedure. The patient tolerated the procedure well and was returned to recovery in good condition. MMODL / IJN: [id number] /
== END 2021-02-23 14:34 | disposition home or self-care (01) ==
LOC: OR 11:56
PROVIDERS: ATTEND Ophthalmology
DX: H25.11 Age-related nuclear cataract, right eye (principal)
CPT/HCPCS: 66984; C1780; J2250; J0171; J3010; J2001

== ENCOUNTER 2021-03-09 09:10 | Day surgery (SDC) | payer MEDICARE, OTHER ==
[2021-03-08 08:35] VITALS: BMI 30.4
[2021-03-09] MEDS: CYCLOPENTOLATE 1% OPHTH SOLN 2 ML BTL OP PRN ×3 (09:33→09:45)
[2021-03-09 09:35] VITALS: TEMP 97
[2021-03-09] MEDS: PHENYLEPHRINE 2.5% OPHTH DRP 2ML OP PRN ×3 (09:36→09:48)
[2021-03-09] MEDS ORDERED: fentaNYL (PF) 50 MCG/ML 2 ML AMP ONE (11:21)
[2021-03-09] MEDS ORDERED: MIDAZOLAM 2 MG/2 ML VIAL ONE (11:21)
[2021-03-09] MEDS ORDERED: BALANCED SALT IRRIG SOLN COMB2 15 ML IRRIG.SOLN INTRAOCULA ONE (11:38)
[2021-03-09] MEDS ORDERED: EPINEPHrine (PF) 0.3 ML in BALANCED SALT IRRIG SOLN COMB2 500 ML IRRIGATION ONE (11:39)
[2021-03-09] MEDS ORDERED: DUOVISC KIT (GREEN BOX) INTRAOCULA ONE (11:39)
[2021-03-09] MEDS ORDERED: LIDOCAINE 1% (PF) 10MG/ML VIAL SQ ONE (11:39)
--- NOTE | 2021-03-09 11:54 | P.OP ---
Date of Procedure: 03/09/21 Preoperative Diagnosis: NS Postoperative Diagnosis: same Procedure(s) Performed: PIOL, OS Implants: [id number] 19.50 Anesthesia: MAC Surgeon: Bill Corona Pathology: none sent Condition: stable Disposition: same day Indications for Procedure: blurry vision Operative Findings: no complications
[2021-03-09 11:59] VITALS: BP 151/66; RESP 16
[2021-03-09 12:27] VITALS: PULSE 61
--- NOTE | 2021-03-10 15:47 | OP ---
OPERATIVE REPORT DATE OF SURGERY: 03/09/2021. PROCEDURE: Phacoemulsification of cataract and intraocular lens implant, left eye PREOPERATIVE DIAGNOSIS: Nuclear sclerosis. POSTOPERATIVE DIAGNOSIS: Nuclear sclerosis. ESTIMATED BLOOD LOSS: Zero. SPECIMEN TAKEN: None. NARRATIVE: After obtaining the appropriate consent, the patient was brought to the operating room, where the patient was placed under cardiac monitoring and prepped and draped in the usual sterile manner. At the 5 o'clock position a 15-degree super sharp blade was used to create a paracentesis followed by instillation of 1% Xylocaine MPF 50:50 mix with BSS into the anterior chamber. This was followed by Duovisc to stabilize the anterior chamber. At the 3 o'clock position a self-sealing corneal flap incision was created using a 2.8 mm blanco keratome. A cystotome was used to initiate a continuous tear capsulorrhexis which was completed with the Utrata forceps. A Binkhorst cannula was used to hydrodissect the lens nucleus followed by hydrodelineation. Phacoemulsification of the lens was performed utilizing phaco chop in 27.09 seconds at 18% power. The remaining cortical material was removed using the irrigation aspiration mode followed by additional 1% Xylocaine MPF into the anterior chamber followed by viscoelastic to stabilize the capsular bag. A [employer] MX60E 19.5-dipoter posterior chamber lens was placed into the capsular bag without difficulty. The remaining viscoelastic material was removed from the anterior chamber with the irrigation/aspiration. Balanced salt solution was used to normalize the intraocular pressure. The incision was checked for watertight integrity. The patient then received two drops of 0.5% timolol followed by two drops Vigamox, was lightly patched and shielded in the usual manner. There were no complications from the procedure. The patient tolerated the procedure well and was returned to recovery in good condition. MMODL / IJN: [id number] /
== END 2021-03-09 12:44 | disposition home or self-care (01) ==
LOC: OR 09:10
PROVIDERS: ATTEND Ophthalmology
DX: H25.12 Age-related nuclear cataract, left eye (principal); H00.026 Hordeolum internum left eye, unspecified eyelid; H00.023 Hordeolum internum right eye, unspecified eyelid; H52.02 Hypermetropia, left eye; H52.4 Presbyopia; Z98.41 Cataract extraction status, right eye; Z96.1 Presence of intraocular lens; Z96.642 Presence of left artificial hip joint; H40.9 Unspecified glaucoma; I10 Essential (primary) hypertension; M19.90 Unspecified osteoarthritis, unspecified site; G35 Multiple sclerosis; F32.9 Major depressive disorder, single episode, unspecified; F41.9 Anxiety disorder, unspecified; Z87.891 Personal history of nicotine dependence; E07.9 Disorder of thyroid, unspecified; J30.2 Other seasonal allergic rhinitis; Z97.2 Presence of dental prosthetic device (complete) (partial); Z82.61 Family history of arthritis; Z83.3 Family history of diabetes mellitus; Z82.49 Family history of ischemic heart disease and other diseases of the circulatory system; Z83.49 Family history of other endocrine, nutritional and metabolic diseases; Z83.511 Family history of glaucoma; Z88.2 Allergy status to sulfonamides; Z79.899 Other long term (current) drug therapy; Z79.890 Hormone replacement therapy; Z88.8 Allergy status to other drugs, medicaments and biological substances; Z88.0 Allergy status to penicillin; Z91.048 Other nonmedicinal substance allergy status
CPT/HCPCS: 66984; C1780; J2250; J0171; J3010; J2001

== ENCOUNTER 2023-06-17 13:44 | Emergency (ER) | payer MEDICARE, OTHER ==
[2023-06-17] MEDS ORDERED: methylPREDNISolone SOD SUCCI 125 MG/2 ML VIAL IV STA (13:47)
[2023-06-17] MEDS ORDERED: SODIUM CHLORIDE 0.9% 500 ML 500 ML IV STA (13:47)
[2023-06-17] MEDS ORDERED: IPRATROPIUM-ALBUTEROL 3 ML NEB INHALATION STA (13:47)
[2023-06-17] MEDS ORDERED: cefTRIAXone IN SWFI 1,000 MG/10 ML SYRINGE IVP STA (13:49)
[2023-06-17 14:20] VITALS: PULSE 89; RESP 18
[2023-06-17] MEDS ORDERED: ACETAMINOPHEN TAB 500 MG TAB PO STA (14:24)
[2023-06-17] MEDS ORDERED: LORazepam 2 MG/ML INJ IV STA (14:28)
--- NOTE | 2023-06-17 14:28 | ED ---
General Adult HPI - General Source: patient, EMS, RN notes reviewed, old records reviewed Mode of arrival: EMS Limitations: no limitations <Humberto Paniagua - Last Filed: 06/17/23 15:40> <Alexandro Higgins - Last Filed: 06/17/23 17:06> - General Chief complaint: Shortness of Breath Stated complaint: epi-gastric pain Time Seen by Provider: 06/17/23 13:55 - History of Present Illness Initial comments: This is a 87-year-old female who presents to the emergency department complaining that she has little bit of shortness of breath she states she sits there and feels like she has to take a deep breath every once in a while. Patient denies any cough but states she has a low-grade fever. Patient has any chest pain or palpitations. Patient states she also has anxiety and it could just be anxiety. Patient states she has chronic abdominal issues for which she is getting an EGD in the next week or so. Patient denies any back pain. Patient has not the patient has numbness or weakness. (Humberto Paniagua) - Related Data Home Medications Medication Instructions Recorded Confirmed Ascorbic Acid [Vitamin C with Brea 500 mg PO DAILY 03/01/15 03/09/21 Hips] Cholecalciferol [Vitamin D3 (25 2,000 unit PO DAILY 03/01/15 03/09/21 Mcg = 1000 Iu)] Levothyroxine Sodium [Synthroid] 50 mcg PO DAILY 03/01/15 03/09/21 Nortriptyline [Pamelor] 25 mg PO DAILY 03/01/15 03/09/21 Ubidecarenone [Co Q-10] 200 mg PO DAILY 03/01/15 03/09/21 chlordiazePOXIDE HCl [Librium] 25 mg PO DAILY 03/01/15 03/09/21 [place]-3 Fatty Acids [[place]-3] 1,000 mg PO DAILY 03/08/15 03/09/21 Acetaminophen [Tylenol Extra 500 mg PO Q4H PRN 03/11/18 03/09/21 Strength] Cyanocobalamin [Vitamin B-12] 500 mcg PO DAILY 03/11/18 03/09/21 Losartan Potassium [Cozaar] 100 mg PO DAILY 03/11/18 03/09/21 Magnesium 400 mg PO DAILY 03/11/18 03/09/21 Multivitamins, Thera [Multivitamin 1 tab PO DAILY 03/11/18 03/09/21 (formulary)] Vitamin C/Biotin [Hair, Skin and 1 tab PO DAILY 03/11/18 03/09/21 Nails Chew] Bisoprolol-Hctz 10-6.25 mg [Ziac 1 tab PO DAILY 02/22/21 03/09/21 10-6.25 MG] Allergies Allergy/AdvReac Type Severity Reaction Status Date / Time iodine Allergy Anaphylaxis Verified 03/09/21 09:22 Penicillins Allergy Anaphylaxis Verified 03/09/21 09:22 - Almost Sulfa (Sulfonamide Allergy Anaphylaxis- Verified 03/09/21 09:22 Antibiotics) Almost amlodipine [From [facility]] AdvReac Unknown Unknown Verified 03/09/21 09:22 MULTIPLE DRUG ALLERGIES Allergy Severe STATES Uncoded 03/09/21 09:22 (UNKNOWN) SEVERE REACTIONS TO SEVERAL MEDS WITH UNKNOWN NAMES. Review of Systems ROS Other: All systems not noted in ROS Statement are negative. <Humberto Paniagua - Last Filed: 06/17/23 15:40> ROS Other: All systems not noted in ROS Statement are negative. <Alexandro Higgins - Last Filed: 06/17/23 17:06> ROS Statement: Those systems with pertinent positive or pertinent negative responses have been documented in the HPI. Past Medical History Past Medical History: Eye Disorder, Hypertension, Osteoarthritis (OA), Thyroid Disorder Additional Past Medical History / Comment(s): ARTHRITIS LOWER BACK History of Any Multi-Drug Resistant Organisms: None Reported Past Surgical History: Joint Replacement, Orthopedic Surgery Additional Past Surgical History / Comment(s): rhonda hip replacements, Other SX: ORIF LT WRIST 2008, cataract removed right eye Past Anesthesia/Blood Transfusion Reactions: Previous Problems w/ Anesthesia Additional Past Anesthesia/Blood Transfusion Reaction / Comment(s): HARD TO WAKE UP Past Psychological History: Anxiety Smoking Status: Former smoker - Past Family History Brother(s) Family Medical History: Cancer Sister(s) Family Medical History: Cancer Father Family Medical History: Cancer Additional Family Medical History / Comment(s): LEUKEMIA Mother Family Medical History: Myocardial Infarction (HI) <Humberto Paniagua - Last Filed: 06/17/23 15:40> General Exam Limitations: no limitations <Humberto Paniagua - Last Filed: 06/17/23 15:40> - General Exam Comments Initial Comments: GENERAL: Patient is well-developed and well-nourished. Patient is nontoxic and well- hydrated and is in no acute distress. ENT: Neck is soft and supple. No significant lymphadenopathy is noted. Oropharynx is clear. Moist mucous membranes. Neck has full range of motion without eliciting any pain. EYES: The sclera were anicteric and conjunctiva were pink and moist. Extraocular movements were intact and pupils were equal round and reactive to light. Eyelids were unremarkable. PULMONARY: Unlabored respirations. Good breath sounds bilaterally. No audible rales r honchi or wheezing was noted. Patient is in no respiratory distress and oxygenating at 100% on room air CARDIOVASCULAR: There is a regular rate and rhythm without any murmurs gallops or rubs. ABDOMEN: Soft and nontender with normal bowel sounds. SKIN: Skin is clear with no lesions or rashes and otherwise unremarkable. NEUROLOGIC: Patient is alert and oriented x3. Cranial nerves II through XII are grossly intact. Motor and sensory are also intact. Normal speech, volume and content. Symmetrical smile. MUSCULOSKELETAL: Normal extremities with adequate strength and full range of motion. No lower extremity swelling or edema. No calf tenderness. LYMPHATICS: No significant lymphadenopathy is noted PSYCHIATRIC: Normal psychiatric evaluation. (Humberto Paniagua) Course <Alexandro Higgins - Last Filed: 06/17/23 17:06> Vital Signs 06/17/23 06/17/23 13:52 15:00 Temperature 100.3 F H 98.1 F Pulse Rate 89 Respiratory 18 Rate O2 Sat by Pulse 99 Oximetry - Reevaluation(s) Reevaluation #1: 06/17/23 16:50 The patient was endorsed to me at shift change by Dr. Paniagua the patient is resting comfortably she denies any complaints at this time she was noted to have a elevated temperature of 100.3 upon arrival labs are pending at this time chest x-ray was interpreted by me as negative for acute process. (Alexandro Higgins) Medical Decision Making <Humberto Paniagua - Last Filed: 06/17/23 15:40> - Lab Data Result diagrams: 06/17/23 15:40 06/17/23 14:24 <Alexandro Higgins - Last Filed: 06/17/23 17:06> - Medical Decision Making EKG is interpreted by myself. EKG shows sinus rhythm at 81 bpm IN 173 QRS 1 QT interval 360 QTc is 405. Patient's EKG shows no ST segment elevation or depression Was pt. sent in by a medical professional or institution ([facility], RESIDENTIAL INSURANCE INSPECTOR, urgent care, hospital, or fci...) When possible be specific @ -[No] Did you speak to anyone other than the patient for history (EMS, parent, family, police, friend...)? What history was obtained from this source @ -[No] Did you review nursing and triage notes (agree or disagree)? Why? @ -[I reviewed and agree with nursing and triage notes] Were old charts reviewed (outside hosp., previous admission, EMS record, old EKG, old radiological studies, urgent care reports/EKG's, fci records)? Report findings @ -I reviewed prior charts and lab work on this patient Differential Diagnosis (chest pain, altered mental status, abdominal pain women, abdominal pain men, vaginal bleeding, weakness, fever, dyspnea, syncope, headache, dizziness, GI bleed, back pain, seizure, CVA, palpatations, mental health, musculoskeletal)? @ -Differential Dyspnea: Coronary syndrome, arrhythmia, tamponade, asthma, COPD, pulmonary embolism, pneumonia, pneumothorax, pulmonary effusion, anaphylaxis, diabetic ketoacidosis, flailed chest, pulmonary contusion, diaphragmatic rupture, anemia, neuromuscular, this is not meant to be an all-inclusive list. EKG interpreted by me (3pts min.). @ -[As above] X-rays interpreted by me (1pt min.). @ -Chest x-ray shows no acute abnormality CT interpreted by me (1pt min.). @ -[None done] U/S interpreted by me (1pt. min.). @ -[None done] What testing was considered but not performed or refused? (CT, X-rays, U/S, labs)? Why? @ -[None] What meds were considered but not given or refused? Why? @ -[None] Did you discuss the management of the patient with other professionals (professionals i.e. [facility], RESIDENTIAL INSURANCE INSPECTOR, lab, RT, psych nurse, bilingual social worker, military lawyer, teacher, armored vehicle officer, upper caser)? Give summary @ -[No] Was smoking cessation discussed for >3mins.? @ -[No] Was critical care preformed (if so, how long)? @ -[No] Were there social determinants of health that impacted care today? How? (Homelessness, low income, unemployed, alcoholism, drug addiction, transportation, low edu. Level, literacy, decrease access to med. care, penitentiary, rehab)? @ -[No] Was there de-escalation of care discussed even if they declined (Discuss DNR or withdrawal of care, Hospice)? DNR status @ -[No] What co-morbidities impacted this encounter? (DM, HTN, Smoking, COPD, CAD, Cancer, CVA, ARF, Chemo, Hep., AIDS, mental health diagnosis, sleep apnea, morbid obesity)? @ -[None] Was patient admitted / discharged? Hospital course, mention meds given and route, prescriptions, significant lab abnormalities, going to OR and other pertinent info. @ -Patient will be signed out to Dr. Higgins at 4 PM (Humberto Paniagua) - Lab Data Lab Results 06/17/23 06/17/23 06/17/23 Range/Units 14:24 14:24 15:40 WBC 10.3 (3.8-10.6) k/uL RBC 4.77 (3.80-5.40) m/uL Hgb 14.5 (11.4-16.0) gm/dL Hct 44.7 (34.0-46.0) % MCV 93.8 (80.0-100.0) fL MCH 30.4 (25.0-35.0) pg MCHC 32.4 (31.0-37.0) g/dL RDW 13.4 (11.5-15.5) % Plt Count 262 (150-450) k/uL MPV 7.4 Neutrophils % 71 % Lymphocytes % 22 % Monocytes % 4 % Eosinophils % 1 % Basophils % 1 % Neutrophils # 7.3 (1.3-7.7) k/uL Lymphocytes # 2.3 (1.0-4.8) k/uL Monocytes # 0.5 (0-1.0) k/uL Eosinophils # 0.1 (0-0.7) k/uL Basophils # 0.1 (0-0.2) k/uL PT (10.0-12.5) sec INR (<1.2) APTT (22.0-30.0) sec Sodium 140 (137-145) mmol/L Potassium 4.3 (3.5-5.1) mmol/L Chloride 110 H (98-107) mmol/L Carbon Dioxide 22 (22-30) mmol/L Anion Gap 8 mmol/L BUN 10 (7-17) mg/dL Creatinine 0.72 (0.52-1.04) mg/dL Est GFR (CKD-EPI)AfAm 89 (>60 ml/min/1.73 sqM) Est GFR (CKD-EPI)NonAf 77 (>60 ml/min/1.73 sqM) Glucose 93 (74-99) mg/dL Plasma Lactic Acid Anmol (0.7-2.0) mmol/L Calcium 9.6 (8.4-10.2) mg/dL Magnesium 2.1 (1.6-2.3) mg/dL Total Bilirubin 1.3 (0.2-1.3) mg/dL AST 27 (14-36) U/L ALT 17 (4-34) U/L Alkaline Phosphatase 94 (38-126) U/L Troponin I <0.012 (0.000-0.034) ng/mL Total Protein 6.8 (6.3-8.2) g/dL Albumin 4.0 (3.5-5.0) g/dL Influenza Type A (PCR) (Not Detectd) Influenza Type B (PCR) (Not Detectd) RSV (PCR) (Not Detectd) SARS-CoV-2 (PCR) (Not Detectd) 06/17/23 06/17/23 06/17/23 Range/Units 15:40 15:40 15:40 WBC (3.8-10.6) k/uL RBC (3.80-5.40) m/uL Hgb (11.4-16.0) gm/dL Hct (34.0-46.0) % MCV (80.0-100.0) fL MCH (25.0-35.0) pg MCHC (31.0-37.0) g/dL RDW (11.5-15.5) % Plt Count (150-450) k/uL MPV Neutrophils % % Lymphocytes % % Monocytes % % Eosinophils % % Basophils % % Neutrophils # (1.3-7.7) k/uL Lymphocytes # (1.0-4.8) k/uL Monocytes # (0-1.0) k/uL Eosinophils # (0-0.7) k/uL Basophils # (0-0.2) k/uL PT 10.9 (10.0-12.5) sec INR 1.0 (<1.2) APTT 22.9 (22.0-30.0) sec Sodium (137-145) mmol/L Potassium (3.5-5.1) mmol/L Chloride (98-107) mmol/L Carbon Dioxide (22-30) mmol/L Anion Gap mmol/L BUN (7-17) mg/dL Creatinine (0.52-1.04) mg/dL Est GFR (CKD-EPI)AfAm (>60 ml/min/1.73 sqM) Est GFR (CKD-EPI)NonAf (>60 ml/min/1.73 sqM) Glucose (74-99) mg/dL Plasma Lactic Acid Anmol 1.2 (0.7-2.0) mmol/L Calcium (8.4-10.2) mg/dL Magnesium (1.6-2.3) mg/dL Total Bilirubin (0.2-1.3) mg/dL AST (14-36) U/L ALT (4-34) U/L Alkaline Phosphatase (38-126) U/L Troponin I (0.000-0.034) ng/mL Total Protein (6.3-8.2) g/dL Albumin (3.5-5.0) g/dL Influenza Type A (PCR) Not Detected (Not Detectd) Influenza Type B (PCR) Not Detected (Not Detectd) RSV (PCR) Not Detected (Not Detectd) SARS-CoV-2 (PCR) Not Detected (Not Detectd) - Radiology Data Interpreted by me: Chest x-ray interpreted by me negative for acute processes. Was pt. sent in by a medical professional or institution (, PA, RESIDENTIAL INSURANCE INSPECTOR, urgent care, hospital, or fci...) When possible be specific @ -No Did you speak to anyone other than the patient for history (EMS, parent, family, police, friend...)? What history was obtained from this source @ -No Did you review nursing and triage notes (agree or disagree)? Why? @ -I reviewed and agree with nursing and triage notes Were old charts reviewed (outside hosp., previous admission, EMS record, old EKG, old radiological studies, urgent care reports/EKG's, fci records)? Report findings @ -No old charts were reviewed Differential Diagnosis (chest pain, altered mental status, abdominal pain women, abdominal pain men, vaginal bleeding, weakness, fever, dyspnea, syncope, hea dache, dizziness, GI bleed, back pain, seizure, CVA, palpatations, mental health, musculoskeletal)? @ -Febrile illness EKG interpreted by me (3pts min.). @ -Interpreted by Dr. Paniagua X-rays interpreted by me (1pt min.). @ -Chest x-ray interpreted by me negative for acute process CT interpreted by me (1pt min.). @ -None done U/S interpreted by me (1pt. min.). @ -None done What testing was considered but not performed or refused? (CT, X-rays, U/S, labs)? Why? @ -None What meds were considered but not given or refused? Why? @ -None Did you discuss the management of the patient with other professionals (professionals i.e. , PA, RESIDENTIAL INSURANCE INSPECTOR, lab, RT, psych nurse, bilingual social worker, military lawyer, teacher, armored vehicle officer, upper caser)? Give summary @ -No Was smoking cessation discussed for >3mins.? @ -No Was critical care preformed (if so, how long)? @ -No Were there social determinants of health that impacted care today? How? (Homelessness, low income, unemployed, alcoholism, drug addiction, trans portation, low edu. Level, literacy, decrease access to med. care, penitentiary, rehab)? @ -No Was there de-escalation of care discussed even if they declined (Discuss DNR or withdrawal of care, Hospice)? DNR status @ -No What co-morbidities impacted this encounter? (DM, HTN, Smoking, COPD, CAD, Cancer, CVA, ARF, Chemo, Hep., AIDS, mental health diagnosis, sleep apnea, morbid obesity)? @ -None Was patient admitted / discharged? Hospital course, mention meds given and route, prescriptions, significant lab abnormalities, going to OR and other pertinent info. @ -Hospital course the patient was discharged with instructions to increase oral fluids follow-up with her doctor and return if needed. I did discuss the laboratory findings and x-ray findings with the patient. Undiagnosed new problem with uncertain prognosis? @ -No Drug Therapy requiring intensive monitoring for toxicity (Heparin, Nitro, Insulin, Cardizem)? @ -No Were any procedures done? @ -No Diagnosis/symptom? @ -Febrile illness, dehydration Acute, or Chronic, or Acute on Chronic? @ -Acute Uncomplicated (without systemic symptoms) or Complicated (systemic symptoms)? @ -Default Side effects of treatment? @ -No Exacerbation, Progression, or Severe Exacerbation? @ -No Poses a threat to life or bodily function? How? (Chest pain, [place], HI, pneumonia, PE, COPD, DKA, ARF, appy, cholecystitis, CVA, Diverticulitis, Homicidal, Suicidal, threat to staff... and all critical care pts) @ -No (Alexandro Higgins) Disposition <Humberto Paniagua - Last Filed: 06/17/23 15:40> Is patient prescribed a controlled substance at d/c from ED?: No Decision Date: 06/17/23 Decision Time: 17:06 <Alexandro Higgins - Last Filed: 06/17/23 17:06> Clinical Impression: Febrile illness, acute, Dehydration Disposition: HOME SELF-CARE Condition: Good Instructions (If sedation given, give patient instructions): Fever in Adults (ED), Dehydration (DC) Referrals: Kitty Baez DO [Primary Care Provider] - 1-2 days
--- NOTE | 2023-06-17 14:56 | XR ---
EXAMINATION TYPE: XR chest 2V DATE OF EXAM: 06/17/2023 COMPARISON: NONE HISTORY: Difficulty breathing TECHNIQUE: Frontal and lateral views of the chest are obtained. FINDINGS: There is no focal air space opacity, pleural effusion, or pneumothorax seen. There is mil d elevation of the right hemidiaphragm. The cardiac silhouette size is within normal limits. The os seous structures are intact. IMPRESSION: No acute cardiopulmonary process.
[2023-06-17 15:39] VITALS: TEMP 98.1
[2023-06-17 15:49] LABS: ALT 17 U/L (4-34); AST 27 U/L (14-36); African American GFR (CKD) 89 (>60 ml/min/1.73 sqM); Alkaline Phosphatase 94 U/L (38-126); Anion Gap 8 mmol/L; Blood Urea Nitrogen 10 mg/dL (7-17); Calcium 9.6 mg/dL (8.4-10.2); Carbon Dioxide 22 mmol/L (22-30); Chloride 110 mmol/L (98-107); Glucose 93 mg/dL (74-99); Magnesium 2.1 mg/dL (1.6-2.3); Non-African American GFR(CKD) 77 (>60 ml/min/1.73 sqM); Potassium 4.3 mmol/L (3.5-5.1); Sodium 140 mmol/L (137-145); Total Bilirubin 1.3 mg/dL (0.2-1.3); Total Protein 6.8 g/dL (6.3-8.2)
[2023-06-17 16:02] LABS: Basophils # (A) 0.1 k/uL (0-0.2); Basophils % (A) 1 %; Eosinophils # (A) 0.1 k/uL (0-0.7); Eosinophils % (A) 1 %; HCT 44.7 % (34.0-46.0); HGB 14.5 gm/dL (11.4-16.0); Lymphocytes # (A) 2.3 k/uL (1.0-4.8); Lymphocytes % (A) 22 %; MCH 30.4 pg (25.0-35.0); MCHC 32.4 g/dL (31.0-37.0); MCV 93.8 fL (80.0-100.0); Mean Platelet Volume 7.4; Monocytes # (A) 0.5 k/uL (0-1.0); Monocytes % (A) 4 %; Neutrophils # (A) 7.3 k/uL (1.3-7.7); Neutrophils % (A) 71 %; Platelet Count 262 k/uL (150-450); RBC 4.77 m/uL (3.80-5.40); RDW 13.4 % (11.5-15.5); WBC 10.3 k/uL (3.8-10.6)
[2023-06-17 16:21] LABS: Partial Thromboplastin Time 22.9 sec (22.0-30.0); Prothrombin Time 10.9 sec (10.0-12.5)
[2023-06-17 17:24] VITALS: BP 157/80
== END 2023-06-17 17:15 | disposition home or self-care (01) ==
LOC: EC 13:44
DX: E86.0 Dehydration (principal); R50.9 Fever, unspecified; E07.9 Disorder of thyroid, unspecified; M19.90 Unspecified osteoarthritis, unspecified site; I10 Essential (primary) hypertension; F41.9 Anxiety disorder, unspecified; Z79.1 Long term (current) use of non-steroidal anti-inflammatories (NSAID); Z79.899 Other long term (current) drug therapy; Z87.891 Personal history of nicotine dependence; Z79.890 Hormone replacement therapy; Z91.041 Radiographic dye allergy status; Z88.0 Allergy status to penicillin; Z88.2 Allergy status to sulfonamides; Z88.8 Allergy status to other drugs, medicaments and biological substances; Z20.822 Contact with and (suspected) exposure to COVID-19
CPT/HCPCS: 36415; 93005; 80053; 83605; 83735; 84484; 85025; 85610; 85730; 87636; 71046; 99285; 96374; J2060

== ENCOUNTER 2024-09-06 18:53 | Emergency (ER) | payer MEDICARE, OTHER ==
--- NOTE | 2024-09-06 19:23 | ED ---
Abdominal Pain HPI - General Chief Complaint: Abdominal Pain Stated Complaint: abd pain Time Seen by Provider: 09/06/24 19:01 Source: patient, EMS, RN notes reviewed, old records reviewed Mode of arrival: EMS Limitations: no limitations - History of Present Illness Initial Comments: This is an 88 female this patient presents today for evaluation in regards to severe abdominal pain recent ER visit for ileus discharged home unable to go to the bathroom severe abdominal pain here in the ER positive nausea and vomiting MD Complaint: abdominal pain -: days(s) Location: diffuse, periumbilical, epigastric, suprapubic Radiation: epigastric, suprapubic Migration to: no migration Severity: moderate, severe Severity scale (1-10): 7 Quality: cramping, stabbing, aching, fullness Consistency: constant Improves With: nothing Worsens With: nothing Associated Symptoms: nausea, vomiting Treatments Prior to Arrival: other (0) - Related Data Home Medications Medication Instructions Recorded Confirmed Ascorbic Acid [Vitamin C with Brea 500 mg PO DAILY 03/01/15 03/09/21 Hips] Cholecalciferol [Vitamin D3 (25 2,000 unit PO DAILY 03/01/15 03/09/21 Mcg = 1000 Iu)] Levothyroxine Sodium [Synthroid] 50 mcg PO DAILY 03/01/15 03/09/21 Nortriptyline [Pamelor] 25 mg PO DAILY 03/01/15 03/09/21 Ubidecarenone [Co Q-10] 200 mg PO DAILY 03/01/15 03/09/21 chlordiazePOXIDE HCl [Librium] 25 mg PO DAILY 03/01/15 03/09/21 [place]aca-3 Fatty Acids [[place]aca-3] 1,000 mg PO DAILY 03/08/15 03/09/21 Acetaminophen [Tylenol Extra 500 mg PO Q4H PRN 03/11/18 03/09/21 Strength] Cyanocobalamin [Vitamin B-12] 500 mcg PO DAILY 03/11/18 03/09/21 Losartan Potassium [Cozaar] 100 mg PO DAILY 03/11/18 03/09/21 Magnesium 400 mg PO DAILY 03/11/18 03/09/21 Multivitamins, Thera [Multivitamin 1 tab PO DAILY 03/11/18 03/09/21 (formulary)] Vitamin C/Biotin [Hair, Skin and 1 tab PO DAILY 03/11/18 03/09/21 Nails Chew] Bisoprolol-Hctz 10-6.25 mg [Ziac 1 tab PO DAILY 02/22/21 03/09/21 10-6.25 MG] Allergies Allergy/AdvReac Type Severity Reaction Status Date / Time iodine Allergy Anaphylaxis Verified 07/01/24 09:26 Penicillins Allergy Anaphylaxis Verified 07/01/24 09:26 - Almost Sulfa (Sulfonamide Allergy Anaphylaxis- Verified 07/01/24 09:26 Antibiotics) Almost amlodipine [From [facility]] AdvReac Unknown Unknown Verified 07/01/24 09:26 MULTIPLE DRUG ALLERGIES Allergy Severe STATES Uncoded 07/01/24 09:26 (UNKNOWN) SEVERE REACTIONS TO SEVERAL MEDS WITH UNKNOWN NAMES. Review of Systems ROS Statement: Those systems with pertinent positive or pertinent negative responses have been documented in the HPI. ROS Other: All systems not noted in ROS Statement are negative. Past Medical History Past Medical History: Eye Disorder, Hypertension, Osteoarthritis (OA), Thyroid D isorder Additional Past Medical History / Comment(s): ARTHRITIS LOWER BACK History of Any Multi-Drug Resistant Organisms: None Reported Past Surgical History: Joint Replacement, Orthopedic Surgery Additional Past Surgical History / Comment(s): rhonda hip replacements, Other SX: ORIF LT WRIST 2008, cataract removed right eye Past Anesthesia/Blood Transfusion Reactions: Previous Problems w/ Anesthesia Additional Past Anesthesia/Blood Transfusion Reaction / Comment(s): HARD TO WAKE UP Past Psychological History: Anxiety Smoking Status: Former smoker Past Alcohol Use History: None Reported Past Drug Use History: None Reported - Past Family History Brother(s) Family Medical History: Cancer Sister(s) Family Medical History: Cancer Father Family Medical History: Cancer Additional Family Medical History / Comment(s): LEUKEMIA Mother Family Medical History: Myocardial Infarction (SD) General Exam Limitations: no limitations General appearance: alert, in no apparent distress Head exam: Present: atraumatic, normocephalic, normal inspection Eye exam: Present: normal appearance, PERRL, EOMI. Absent: scleral icterus, conjunctival injection, periorbital swelling ENT exam: Present: normal exam, mucous membranes moist Neck exam: Present: normal inspection. Absent: tenderness, meningismus, lymphadenopathy Respiratory exam: Present: normal lung sounds bilaterally. Absent: respiratory distress, wheezes, rales, rhonchi, stridor Cardiovascular Exam: Present: regular rate, normal rhythm, normal heart sounds. Absent: systolic murmur, diastolic murmur, rubs, gallop, clicks GI/Abdominal exam: Present: soft, normal bowel sounds. Absent: distended, tenderness, guarding, rebound, rigid Extremities exam: Present: normal inspection, full ROM, normal capillary refill. Absent: tenderness, pedal edema, joint swelling, calf tenderness Back exam: Present: normal inspection Neurological exam: Present: alert, oriented X3, CN II-XII intact Psychiatric exam: Present: normal affect, normal mood Skin exam: Present: warm, dry, intact, normal color. Absent: rash Course Vital Signs 09/06/24 09/06/24 18:54 21:00 Temperature 97.9 F Pulse Rate 87 84 Respiratory 17 16 Rate Blood Pressure 143/81 132/61 O2 Sat by Pulse 97 97 Oximetry - Reevaluation(s) Reevaluation #1: 09/06/24 21:25 Medical records reviewed Reevaluation #2: 09/06/24 22:32 Patient symptoms improved here in the ER with positive bowel movements Reevaluation #3: 09/06/24 22:33 Patient informed of results questions answered Reevaluation #4: Was pt. sent in by a medical professional or institution ([facility], [facility], urgent care, hospital, or shelter...) When possible be specific @ -no Did you speak to anyone other than the patient for history (EMS, parent, family, police, friend...)? What history was obtained from this source @ -no Did you review nursing and triage notes (agree or disagree)? Why? @ -agree Are old charts reviewed (outside hosp., previous admission, EMS record, old EKG, old radiological studies, urgent care reports/EKG's, shelter records)? Report findings @ -yes Differential Diagnosis (chest pain, altered mental status, abdominal pain women, abdominal pain men, vaginal bleeding, weakness, fever, dyspnea, syncope, headac he, dizziness, GI bleed, back pain, seizure, CVA, palpatations, mental health, musculoskeletal)? @ -prior EKG interpreted by me (3pts min.). @ -yes X-rays interpreted by me (1pt min.). @ -yes negative for acute disease CT interpreted by me (1pt min.). @ -no U/S interpreted by me (1pt. min.). @ -no What testing was considered but not performed or refused? (CT, X-rays, U/S, labs)? Why? @ -none What meds were considered but not given or refused? Why? @ -none Did you discuss the management of the patient with other professionals (professionals i.e. DrJoan, PA, [facility], lab, RT, psych nurse, social worker masters, phytochemistry professor, teacher, air defense control officer, adult protective caseworker)? Give summary @ -no Was smoking cessation discussed for >3mins.? @ -no Was critical care preformed (if so, how long)? @ -no Were there social determinants of health that impacted care today? How? (Homelessness, low income, unemployed, alcoholism, drug addiction, transportation, low edu. Level, literacy, decrease access to med. care, residential, rehab)? @ -none Was there de-escalation of care discussed even if they declined (Discuss DNR or withdrawal of care, Hospice)? DNR status @ -no What co-morbidities impacted this encounter? (DM, HTN, Smoking, COPD, CAD, Cancer, CVA, ARF, Chemo, Hep., AIDS, mental health diagnosis, sleep apnea, morbi d obesity)? @ -none Was patient admitted / discharged? Hospital course, mention meds given and rout e, prescriptions, significant lab abnormalities, going to OR and other pertinent info. @ - Undiagnosed new problem with uncertain prognosis? @ -no Drug Therapy requiring intensive monitoring for toxicity (Heparin, Nitro, Insulin, Cardizem)? @ -no Were any procedures done? @ -no Diagnosis/symptom? @ - Acute, or Chronic, or Acute on Chronic? @ -Acute Uncomplicated (without systemic symptoms) or Complicated (systemic symptoms)? @ -Complicated Side effects of treatment? @ -no Exacerbation, Progression, or Severe Exacerbation? @ -exacerbation Poses a threat to life or bodily function? How? (Chest pain, USA, SD, pneumonia, PE, COPD, DKA, ARF, appy, cholecystitis, CVA, Diverticulitis, Homicidal, Suicidal, threat to staff... and all critical care pts) @ -yes Reevaluation #5: Differential Abdominal Pain Women: Appendicitis, Cholecystitis, diverticulosis, ischemic bowel, pancreatitis, hepatitis, UTI, gastroenteritis, AAA, incarcerated hernia, bowel obstruction, constipation, inflammatory bowel, hepatitis, peptic ulcer disease, splenic infarction, perforated viscus, vulvitis, ovarian torsion, PID, kidney stone, placenta abruption, this is not meant to be an all-inclusive list Medical Decision Making - Medical Decision Making 88 female with constipation placed on bowel regimen and can be discharged home - Lab Data Result diagrams: 09/06/24 19:39 09/06/24 19:39 Lab Results 09/06/24 09/06/24 09/06/24 Range/Units 19:39 19:39 19:39 WBC 9.54 (4.50-10.00) 10*3/uL RBC 4.41 (4.10-5.20) 10*6/uL Hgb 13.4 (12.0-15.0) g/dL Hct 41.0 (37.2-46.3) % MCV 93.0 (80.0-97.0) fL MCH 30.4 (27.0-32.0) pg MCHC 32.7 (32.0-37.0) g/dL Plt Count 225 (140-440) 10*3/uL MPV 10.6 (9.5-12.2) fL Immature Gran % (Auto) 0.2 % Neutrophils % 74.4 % Lymphocytes % 17.1 % Monocytes % 7.0 % Eosinophils % 0.6 % Basophils % 0.7 % Immature Gran # 0.02 (0.00-0.04) 10*3/uL Neutrophils # 7.09 (1.80-7.70) 10*3/uL Lymphocytes # 1.63 (0.90-5.00) 10*3/uL Monocytes # 0.67 (0.20-1.00) 10*3/uL Eosinophils # 0.06 (0.04-0.35) 10*3/uL Basophils # 0.07 (0.00-0.10) 10*3/uL PT 10.8 (10.0-12.5) sec INR 1.0 (<1.2) APTT 23.2 (22.0-30.0) sec Sodium 138 (137-145) mmol/L Potassium 4.1 (3.5-5.1) mmol/L Chloride 102 (98-107) mmol/L Carbon Dioxide 23 (22-30) mmol/L Anion Gap 13 mmol/L BUN 16 (7-17) mg/dL Creatinine 0.93 (0.52-1.04) mg/dL Est GFR (CKD-EPI)AfAm 65 (>60 ml/min/1.73 sqM) Est GFR (CKD-EPI)NonAf 56 (>60 ml/min/1.73 sqM) Glucose 122 H (74-99) mg/dL Plasma Lactic Acid Anmol (0.7-2.0) mmol/L Calcium 9.9 (8.4-10.2) mg/dL Total Bilirubin 1.0 (0.2-1.3) mg/dL AST 25 (14-36) U/L ALT 13 (4-34) U/L Alkaline Phosphatase 86 (38-126) U/L Troponin I (0.000-0.034) ng/mL Total Protein 7.0 (6.3-8.2) g/dL Albumin 4.3 (3.5-5.0) g/dL Amylase 78 (30-110) U/L Lipase 214 (23-300) U/L 09/06/24 09/06/24 Range/Units 19:39 19:39 WBC (4.50-10.00) 10*3/uL RBC (4.10-5.20) 10*6/uL Hgb (12.0-15.0) g/dL Hct (37.2-46.3) % MCV (80.0-97.0) fL MCH (27.0-32.0) pg MCHC (32.0-37.0) g/dL Plt Count (140-440) 10*3/uL MPV (9.5-12.2) fL Immature Gran % (Auto) % Neutrophils % % Lymphocytes % % Monocytes % % Eosinophils % % Basophils % % Immature Gran # (0.00-0.04) 10*3/uL Neutrophils # (1.80-7.70) 10*3/uL Lymphocytes # (0.90-5.00) 10*3/uL Monocytes # (0.20-1.00) 10*3/uL Eosinophils # (0.04-0.35) 10*3/uL Basophils # (0.00-0.10) 10*3/uL PT (10.0-12.5) sec INR (<1.2) APTT (22.0-30.0) sec Sodium (137-145) mmol/L Potassium (3.5-5.1) mmol/L Chloride (98-107) mmol/L Carbon Dioxide (22-30) mmol/L Anion Gap mmol/L BUN (7-17) mg/dL Creatinine (0.52-1.04) mg/dL Est GFR (CKD-EPI)AfAm (>60 ml/min/1.73 sqM) Est GFR (CKD-EPI)NonAf (>60 ml/min/1.73 sqM) Glucose (74-99) mg/dL Plasma Lactic Acid Anmol 1.4 (0.7-2.0) mmol/L Calcium (8.4-10.2) mg/dL Total Bilirubin (0.2-1.3) mg/dL AST (14-36) U/L ALT (4-34) U/L Alkaline Phosphatase (38-126) U/L Troponin I <0.012 (0.000-0.034) ng/mL Total Protein (6.3-8.2) g/dL Albumin (3.5-5.0) g/dL Amylase (30-110) U/L Lipase (23-300) U/L - Radiology Data Radiology results: report reviewed (CT abdomen pelvis no blockages no obvious moderate stool with air,), image reviewed Disposition Clinical Impression: Abdominal pain Disposition: HOME SELF-CARE Condition: Good Instructions (If sedation given, give patient instructions): Abdominal Pain (ED) Is patient prescribed a controlled substance at d/c from ED?: No Referrals: Momo Baez MD [Primary Care Provider] - 1-2 days Time of Disposition: 22:00
[2024-09-06] MEDS: SODIUM CHLORIDE 0.9% 1,000 ML IV ONE (19:46)
[2024-09-06 20:12] LABS: Basophils # (A) 0.07 10*3/uL (0.00-0.10); Basophils % (A) 0.7 %; Eosinophils # (A) 0.06 10*3/uL (0.04-0.35); Eosinophils % (A) 0.6 %; HGB 13.4 g/dL (12.0-15.0); Lymphocytes # (A) 1.63 10*3/uL (0.90-5.00); Lymphocytes % (A) 17.1 %; MCH 30.4 pg (27.0-32.0); MCHC 32.7 g/dL (32.0-37.0); Mean Platelet Volume 10.6 fL (9.5-12.2); Monocytes # (A) 0.67 10*3/uL (0.20-1.00); Neutrophils # (A) 7.09 10*3/uL (1.80-7.70); Neutrophils % (A) 74.4 %; Platelet Count 225 10*3/uL (140-440); RBC 4.41 10*6/uL (4.10-5.20); RDW 13.3 % (11.5-14.5); WBC 9.54 10*3/uL (4.50-10.00)
[2024-09-06 20:28] LABS: ALT 13 U/L (4-34); AST 25 U/L (14-36); African American GFR (CKD) 65 (>60 ml/min/1.73 sqM); Albumin 4.3 g/dL (3.5-5.0); Alkaline Phosphatase 86 U/L (38-126); Amylase 78 U/L (30-110); Anion Gap 13 mmol/L; Blood Urea Nitrogen 16 mg/dL (7-17); Calcium 9.9 mg/dL (8.4-10.2); Carbon Dioxide 23 mmol/L (22-30); Chloride 102 mmol/L (98-107); Glucose 122 mg/dL (74-99); Lipase 214 U/L (23-300); Non-African American GFR(CKD) 56 (>60 ml/min/1.73 sqM); Potassium 4.1 mmol/L (3.5-5.1); Sodium 138 mmol/L (137-145)
[2024-09-06 20:40] LABS: Partial Thromboplastin Time 23.2 sec (22.0-30.0); Prothrombin Time 10.8 sec (10.0-12.5)
[2024-09-06] MEDS: ONDANSETRON 4 MG/2 ML VIAL IVP STA (20:44)
[2024-09-06] MEDS: HYDROmorphone 2 MG/ML 1 ML SYRINGE IVP STA (20:44)
[2024-09-06] MEDS: FAMOTIDINE 20 MG/2 ML VIAL IV STA (20:44)
[2024-09-06] MEDS: diphenhydrAMINE 50 MG/ML 1 ML VIAL IVP STA (20:44)
[2024-09-06] MEDS: PANTOPRAZOLE 40 MG/10 ML VIAL IV SCH (20:45)
[2024-09-06] MEDS: methylPREDNISolone SOD SUCCI 125 MG/2 ML VIAL IV STA (20:45)
--- NOTE | 2024-09-06 21:58 | CT ---
EXAMINATION TYPE: CT abdomen pelvis wo con DATE OF EXAM: 09/06/2024 9:45 PM COMPARISON: None CLINICAL INDICATION: Female, 88 years old with history of pain; abd pain and constipation x1 week, wa s seen at [facility] yesterday and left AMA. Paperwork from [facility] states dx as a small bowel ileus Pt c/o decrease appetite and left side generalized abdominal pain. TECHNIQUE: Axial CT abdomen pelvis wo con;Sagittal and coronal reformats were created on a separate workstation. Contrast used: mL of , (none if empty) Oral contrast used: without Oral Contrast (none if empty) CT DLP: 616.6 mGycm, Automated exposure control for dose reduction was used. FINDINGS: LOWER CHEST: Unremarkable ABDOMEN LIVER: Unremarkable right hepatic lobe simple appearing cyst measuring 19 mm GALLBLADDER AND BILE DUCTS: Layering gallstones in the gallbladder fundus. PANCREAS: Unremarkable. SPLEEN: Unremarkable. ADRENAL GLANDS: 23 mm left adrenal nodule measuring -2 Hounsfield units compatible with lipid rich ad renal adenoma. No follow-up recommended. KIDNEYS AND URETERS: No evidence of hydronephrosis or obstructing renal calculus. The ureters are unr emarkable. PELVIS BLADDER: No evidence for wall thickening or mass given limitations of exam. REPRODUCTIVE: Unremarkable. ABDOMEN & PELVIS STOMACH AND BOWEL: No evidence of bowel obstruction. The appendix is normal. Moderate to large amount stool throughout the colon. Gaseous distention of the colon also present. Second portion duodenal di verticulum. Small bowel is relatively nondistended. PERITONEUM/RETROPERITONEUM: No evidence of pneumoperitoneum or free fluid. VASCULATURE: Mild atherosclerotic calcifications are present throughout the abdominal aorta and its b ranches. No evidence of aortic aneurysm. MUSCULOSKELETAL: No acute osseous abnormalities. Moderate disc degeneration changes are present throu ghout the thoracolumbar spine. Bilateral hip arthroplasties limit evaluation the pelvis. LYMPH NODES: No gross evidence for lymphadenopathy. SOFT TISSUE/ABDOMINAL WALL: Unremarkable IMPRESSION: 1. No evidence for acute abdominal process. 2. Moderate to large amount of stool throughout the colon with gaseous distention. The small bowel i s relatively nondistended. 3. Left lipid rich adrenal adenoma. No follow-up recommended. 4. Cholelithiasis. [facility], , 09/06/2024 9:56 PM
[2024-09-06 22:57] VITALS: BP 145/75; PULSE 86; RESP 18; TEMP 97.6
[2024-09-06] MEDS: SENNOSIDES-DOCUSATE SODIUM 1 EACH TAB PO STA (23:06)
[2024-09-06] MEDS: GLYCERIN ADULT SUPPOSITORY 1 EACH RECTAL STA (23:06)
== END 2024-09-06 23:11 | disposition home or self-care (01) ==
LOC: SUPCPDRO 18:53 → EC 18:53
DX: R10.13 Epigastric pain (principal); Z87.891 Personal history of nicotine dependence; Z88.0 Allergy status to penicillin; Z88.2 Allergy status to sulfonamides; Z91.041 Radiographic dye allergy status; Z88.8 Allergy status to other drugs, medicaments and biological substances
CPT/HCPCS: 36415; 74176; 80053; 82150; 83605; 83690; 84484; 85025; 85610; 85730; 96360; 96361; 99285

== ENCOUNTER 2024-09-17 10:33 | Emergency (ER) | payer MEDICARE, OTHER ==
[2024-09-17 10:42] VITALS: RESP 20
[2024-09-17 10:43] VITALS: TEMP 98.4
--- NOTE | 2024-09-17 11:09 | ED ---
General Adult HPI - General Chief complaint: Abdominal Pain Stated complaint: Abd Pain Time Seen by Provider: 09/17/24 10:56 Source: patient, EMS Mode of arrival: EMS Limitations: no limitations - History of Present Illness Initial comments: 88-year-old female presenting to emergency department via EMS from home for complaints of generalized abdominal pain that started this morning at 05 100. Patient states that the pain in her abdomen is making it hard for her to take a deep breath. She states that the pain feels like her abdomen is "hard". States that she has been battling with constipation over the past few months where she reported with her primary care provider yesterday where they changed her medication regimen. Last bowel movement was yesterday that patient reports was small. States that she is passing minimal gas. Denies nausea, vomiting, chest pain, heart palpitations, bloody or dark stools. Patient is scheduled for colonoscopy on the of this month. - Related Data Home Medications Medication Instructions Recorded Confirmed Ascorbic Acid [Vitamin C with Brea 500 mg PO DAILY 03/01/15 09/17/24 Hips] Levothyroxine Sodium [Synthroid] 50 mcg PO DAILY 03/01/15 09/17/24 Nortriptyline [Pamelor] 25 mg PO HS 03/01/15 09/17/24 Ubidecarenone [Co Q-10] 200 mg PO DAILY 03/01/15 09/17/24 chlordiazePOXIDE HCl [Librium] 25 mg PO DAILY 03/01/15 09/17/24 [place]-3 Fatty Acids [[place]-3] 1,000 mg PO DAILY 03/08/15 09/17/24 Cyanocobalamin [Vitamin B-12] 500 mcg PO DAILY 03/11/18 09/17/24 Losartan Potassium [Cozaar] 100 mg PO DAILY 03/11/18 09/17/24 Magnesium 400 mg PO DAILY 03/11/18 09/17/24 Multivitamins, Thera [Multivitamin 1 tab PO DAILY 03/11/18 09/17/24 (formulary)] Vitamin C/Biotin [Hair, Skin and 1 tab PO DAILY 03/11/18 09/17/24 Nails Chew] Cholecalciferol (Vitamin D3) 50 mcg PO DAILY 09/17/24 09/17/24 [Vitamin D3 (50 Mcg = 2000 Iu)] Docusate [Colace] 100 mg PO DAILY 09/17/24 09/17/24 Lactulose [Constulose] 20 gm PO BID 09/17/24 09/17/24 Lubiprostone [Amitiza] 24 mcg PO BID 09/17/24 09/17/24 NIFEdipine XL [Procardia XL] 60 mg PO BID 09/17/24 09/17/24 levOCARNitine [l-Carnitine] 500 mg PO DAILY 09/17/24 09/17/24 polyethylene glycoL 3350 [Miralax] 17 gm PO TID 09/17/24 09/17/24 Allergies Allergy/AdvReac Type Severity Reaction Status Date / Time iodine Allergy Anaphylaxis Verified 09/17/24 13:39 Penicillins Allergy Anaphylaxis Verified 09/17/24 13:39 - Almost Sulfa (Sulfonamide Allergy Anaphylaxis- Verified 09/17/24 13:39 Antibiotics) Almost amlodipine [From Norvasc] AdvReac Unknown Unknown Verified 09/17/24 13:39 MULTIPLE DRUG ALLERGIES Allergy Severe STATES Uncoded 09/17/24 13:39 (UNKNOWN) SEVERE REACTIONS TO SEVERAL MEDS WITH UNKNOWN NAMES. Review of Systems ROS Statement: Those systems with pertinent positive or pertinent negative responses have been documented in the HPI. ROS Other: All systems not noted in ROS Statement are negative. Past Medical History Past Medical History: Eye Disorder, Hypertension, Osteoarthritis (OA), Thyroid Disorder Additional Past Medical History / Comment(s): ARTHRITIS LOWER BACK History of Any Multi-Drug Resistant Organisms: None Reported Past Surgical History: Joint Replacement, Orthopedic Surgery Additional Past Surgical History / Comment(s): rhonda hip replacements, Other SX: ORIF LT WRIST 2008, cataract removed right eye Past Anesthesia/Blood Transfusion Reactions: Previous Problems w/ Anesthesia Additional Past Anesthesia/Blood Transfusion Reaction / Comment(s): HARD TO WAKE UP Past Psychological History: Anxiety Smoking Status: Former smoker Past Alcohol Use History: None Reported Past Drug Use History: None Reported - Past Family History Brother(s) Family Medical History: Cancer Sister(s) Family Medical History: Cancer Father Family Medical History: Cancer Additional Family Medical History / Comment(s): LEUKEMIA Mother Family Medical History: Myocardial Infarction (VT) General Exam Limitations: no limitations Respiratory exam: Present: normal lung sounds bilaterally. Absent: respiratory distress, wheezes, rales, rhonchi, stridor Cardiovascular Exam: Present: regular rate, normal rhythm, normal heart sounds. Absent: systolic murmur, diastolic murmur, rubs, gallop, clicks GI/Abdominal exam: Present: soft, tenderness (mid abdomen and suprapubic), normal bowel sounds. Absent: distended, guarding, rebound, rigid Extremities exam: Present: normal inspection, full ROM, normal capillary refill. Absent: tenderness, pedal edema, joint swelling, calf tenderness Back exam: Present: normal inspection. Absent: CVA tenderness (R), CVA tender ness (L) Course Vital Signs 09/17/24 09/17/24 09/17/24 10:37 10:42 11:53 Temperature 98.4 F Pulse Rate 83 77 Respiratory 20 20 Rate Blood Pressure 149/75 154/75 O2 Sat by Pulse 98 98 Oximetry Medical Decision Making - Medical Decision Making Was pt. sent in by a medical professional or institution (, PA, TRUST ADMINISTRATOR, urgent care, hospital, or long-term...) When possible be specific @ -No Did you speak to anyone other than the patient for history (EMS, parent, family, police, friend...)? What history was obtained from this source @ -No Did you review nursing and triage notes (agree or disagree)? Why? @ -I reviewed and agree with nursing and triage notes Were old charts reviewed (outside hosp., previous admission, EMS record, old EKG, old radiological studies, urgent care reports/EKG's, long-term records)? Report findings @ -No old charts were reviewed Differential Diagnosis (chest pain, altered mental status, abdominal pain women, abdominal pain men, vaginal bleeding, weakness, fever, dyspnea, syncope, headache, dizziness, GI bleed, back pain, seizure, CVA, palpatations, mental health, musculoskeletal)? @ -Differential Abdominal Pain Women: Appendicitis, Cholecystitis, diverticulosis, ischemic bowel, pancreatitis, hepatitis, UTI, gastroenteritis, AAA, incarcerated hernia, bowel obstruction, constipation, inflammatory bowel, hepatitis, peptic ulcer disease, splenic infarction, perforated viscus, vulvitis, ovarian torsion, PID, kidney stone, placenta abruption, this is not meant to be an all-inclusive list EKG interpreted by me (3pts min.). @ -Completed at 1046 sinus rhythm with a ventricular to 74, NE interval 172, QRS 86, QT 381, QTc 408. X-rays interpreted by me (1pt min.). @ -None done CT interpreted by me (1pt min.). @ -CT of the abdomen pelvis without IV contrast reveals no evidence for acute abdominal or pelvic process with mild colonic stool burden U/S interpreted by me (1pt. min.). @ -None done What testing was considered but not performed or refused? (CT, X-rays, U/S, labs)? Why? @ -None What meds were considered but not given or refused? Why? @ -None Did you discuss the management of the patient with other professionals (professionals i.e. ., PA, TRUST ADMINISTRATOR, lab, RT, psych nurse, pediatric social worker, personnel clerk, teacher, chief security and safety officer, community case manager)? Give summary @ -No Was smoking cessation discussed for >3mins.? @ -No Was critical care preformed (if so, how long)? @ -No Were there social determinants of health that impacted care today? How? (Homelessness, low income, unemployed, alcoholism, drug addiction, transportation, low edu. Level, literacy, decrease access to med. care, usp, rehab)? @ -No Was there de-escalation of care discussed even if they declined (Discuss DNR or withdrawal of care, Hospice)? DNR status @ -No What co-morbidities impacted this encounter? (DM, HTN, Smoking, COPD, CAD, Canc er, CVA, ARF, Chemo, Hep., AIDS, mental health diagnosis, sleep apnea, morbid obesity)? @ -None Was patient admitted / discharged? Hospital course, mention meds given and route, prescriptions, significant lab abnormalities, going to OR and other pertinent info. @ -Discharge. 88 old female presents emerged part via EMS for complaints abdominal pain. Patient's initial vitals are stable abdominal tenderness is reproducible in the mid abdomen suprapubic. EKG is in sinus rhythm. Laboratory testing including CBC, CMP, troponins unremarkable. Urinalysis concerning for contamination with infection as patient has been experiencing urinary symptoms however bladder scan completed at bedside revealing over 1000 cc of urine after patient has urinated. Ibrahim catheter orders placed with drainage of over 1000 cc. Repeat urinalysis from catheter no signs of infection. Patient is provided with urology follow-up and will be discharged with Ibrahim catheter in place. discussed with Dr. Paniagua Undiagnosed new problem with uncertain prognosis? @ -No Drug Therapy requiring intensive monitoring for toxicity (Heparin, Nitro, Insulin, Cardizem)? @ -No Were any procedures done? @ -No Diagnosis/symptom? @ -Urinary retention, constipation Acute, or Chronic, or Acute on Chronic? @ -Acute Uncomplicated (without systemic symptoms) or Complicated (systemic symptoms)? @ -Uncomplicated Side effects of treatment? @ -No Exacerbation, Progression, or Severe Exacerbation? @ -No Poses a threat to life or bodily function? How? (Chest pain, USA, VT, pneumonia, PE, COPD, DKA, ARF, appy, cholecystitis, CVA, Diverticulitis, Homicidal, Suicidal, threat to staff... and all critical care pts) @ -No - Lab Data Result diagrams: 09/17/24 11:22 09/17/24 11:22 Lab Results 09/17/24 09/17/24 09/17/24 Range/Units 11:22 11:22 11:22 WBC 6.83 (4.50-10.00) 10*3/uL RBC 4.25 (4.10-5.20) 10*6/uL Hgb 13.4 (12.0-15.0) g/dL Hct 38.6 (37.2-46.3) % MCV 90.8 (80.0-97.0) fL MCH 31.5 (27.0-32.0) pg MCHC 34.7 (32.0-37.0) g/dL Plt Count 341 (140-440) 10*3/uL MPV 9.2 L (9.5-12.2) fL Immature Gran % (Auto) 0.3 % Neutrophils % 61.5 % Lymphocytes % 29.7 % Monocytes % 6.6 % Eosinophils % 1.0 % Basophils % 0.9 % Immature Gran # 0.02 (0.00-0.04) 10*3/uL Neutrophils # 4.20 (1.80-7.70) 10*3/uL Lymphocytes # 2.03 (0.90-5.00) 10*3/uL Monocytes # 0.45 (0.20-1.00) 10*3/uL Eosinophils # 0.07 (0.04-0.35) 10*3/uL Basophils # 0.06 (0.00-0.10) 10*3/uL Sodium 142 (137-145) mmol/L Potassium 3.7 (3.5-5.1) mmol/L Chloride 110 H (98-107) mmol/L Carbon Dioxide 23 (22-30) mmol/L Anion Gap 9 mmol/L BUN 4 L (7-17) mg/dL Creatinine 0.64 (0.52-1.04) mg/dL Est GFR (CKD-EPI)AfAm >90 (>60 ml/min/1.73 sqM) Est GFR (CKD-EPI)NonAf 81 (>60 ml/min/1.73 sqM) Glucose 105 H (74-99) mg/dL Plasma Lactic Acid Anmol 1.1 (0.7-2.0) mmol/L Calcium 9.3 (8.4-10.2) mg/dL Total Bilirubin 1.3 (0.2-1.3) mg/dL AST 21 (14-36) U/L ALT 11 (4-34) U/L Alkaline Phosphatase 101 (38-126) U/L Troponin I (0.000-0.034) ng/mL Total Protein 6.4 (6.3-8.2) g/dL Albumin 3.8 (3.5-5.0) g/dL Amylase 61 (30-110) U/L Lipase 156 (23-300) U/L Urine Color Urine Appearance (Clear) Urine pH (5.0-8.0) Ur Specific [place] (1.001-1.035) Urine Protein (Negative) Urine Glucose (UA) (Negative) Urine Ketones (Negative) Urine Blood (Negative) Urine Nitrite (Negative) Urine Bilirubin (Negative) Urine Urobilinogen (<2.0) mg/dL Ur Leukocyte Esterase (Negative) Urine RBC (0-5) /hpf Urine WBC (0-5) /hpf Ur Squamous Epith Cells (0-4) /hpf Amorphous Sediment (None) /hpf Urine Bacteria (None) /hpf 09/17/24 09/17/24 09/17/24 Range/Units 11:22 11:53 14:00 WBC (4.50-10.00) 10*3/uL RBC (4.10-5.20) 10*6/uL Hgb (12.0-15.0) g/dL Hct (37.2-46.3) % MCV (80.0-97.0) fL MCH (27.0-32.0) pg MCHC (32.0-37.0) g/dL Plt Count (140-440) 10*3/uL MPV (9.5-12.2) fL Immature Gran % (Auto) % Neutrophils % % Lymphocytes % % Monocytes % % Eosinophils % % Basophils % % Immature Gran # (0.00-0.04) 10*3/uL Neutrophils # (1.80-7.70) 10*3/uL Lymphocytes # (0.90-5.00) 10*3/uL Monocytes # (0.20-1.00) 10*3/uL Eosinophils # (0.04-0.35) 10*3/uL Basophils # (0.00-0.10) 10*3/uL Sodium (137-145) mmol/L Potassium (3.5-5.1) mmol/L Chloride (98-107) mmol/L Carbon Dioxide (22-30) mmol/L Anion Gap mmol/L BUN (7-17) mg/dL Creatinine (0.52-1.04) mg/dL Est GFR (CKD-EPI)AfAm (>60 ml/min/1.73 sqM) Est GFR (CKD-EPI)NonAf (>60 ml/min/1.73 sqM) Glucose (74-99) mg/dL Plasma Lactic Acid Anmol (0.7-2.0) mmol/L Calcium (8.4-10.2) mg/dL Total Bilirubin (0.2-1.3) mg/dL AST (14-36) U/L ALT (4-34) U/L Alkaline Phosphatase (38-126) U/L Troponin I <0.012 (0.000-0.034) ng/mL Total Protein (6.3-8.2) g/dL Albumin (3.5-5.0) g/dL Amylase (30-110) U/L Lipase (23-300) U/L Urine Color Colorless Colorless Urine Appearance Turbid H Clear (Clear) Urine pH 7.5 7.5 (5.0-8.0) Ur Specific [place] 1.005 1.003 (1.001-1.035) Urine Protein Negative Negative (Negative) Urine Glucose (UA) Negative Negative (Negative) Urine Ketones Negative Negative (Negative) Urine Blood Trace H Negative (Negative) Urine Nitrite Negative Negative (Negative) Urine Bilirubin Negative Negative (Negative) Urine Urobilinogen <2.0 <2.0 (<2.0) mg/dL Ur Leukocyte Esterase Large H Negative (Negative) Urine RBC 5 (0-5) /hpf Urine WBC 50 H (0-5) /hpf Ur Squamous Epith Cells 67 H (0-4) /hpf Amorphous Sediment Rare H (None) /hpf Urine Bacteria Moderate H (None) /hpf Disposition Clinical Impression: Constipation, Urinary retention with incomplete bladder emptying Disposition: HOME SELF-CARE Condition: Stable Instructions (If sedation given, give patient instructions): Constipation (DC), Acute Urinary Retention in Women (ED) Additional Instructions: Please return to the Emergency Department if symptoms worsen or any other concerns. Complete antibiotics as prescribed. Drink infection. Follow-up with primary care provider in the next 2 to 3 days. Follow-up as scheduled for colonoscopy. Is patient prescribed a controlled substance at d/c from ED?: No Referrals: Momo Baez MD [Primary Care Provider] - 1-2 days Frank Waddell MD [STAFF PHYSICIAN] - 1-2 days Time of Disposition: 12:57
[2024-09-17 11:30] LABS: Basophils # (A) 0.06 10*3/uL (0.00-0.10); Basophils % (A) 0.9 %; Eosinophils # (A) 0.07 10*3/uL (0.04-0.35); HCT 38.6 % (37.2-46.3); HGB 13.4 g/dL (12.0-15.0); Lymphocytes # (A) 2.03 10*3/uL (0.90-5.00); Lymphocytes % (A) 29.7 %; MCH 31.5 pg (27.0-32.0); MCHC 34.7 g/dL (32.0-37.0); MCV 90.8 fL (80.0-97.0); Mean Platelet Volume 9.2 fL (9.5-12.2); Monocytes # (A) 0.45 10*3/uL (0.20-1.00); Monocytes % (A) 6.6 %; Neutrophils % (A) 61.5 %; Platelet Count 341 10*3/uL (140-440); RBC 4.25 10*6/uL (4.10-5.20); RDW 13.1 % (11.5-14.5); WBC 6.83 10*3/uL (4.50-10.00)
[2024-09-17 11:50] LABS: ALT 11 U/L (4-34); AST 21 U/L (14-36); African American GFR (CKD) >90 (>60 ml/min/1.73 sqM); Albumin 3.8 g/dL (3.5-5.0); Alkaline Phosphatase 101 U/L (38-126); Amylase 61 U/L (30-110); Anion Gap 9 mmol/L; Blood Urea Nitrogen 4 mg/dL (7-17); Calcium 9.3 mg/dL (8.4-10.2); Carbon Dioxide 23 mmol/L (22-30); Chloride 110 mmol/L (98-107); Glucose 105 mg/dL (74-99); Lipase 156 U/L (23-300); Non-African American GFR(CKD) 81 (>60 ml/min/1.73 sqM); Potassium 3.7 mmol/L (3.5-5.1); Sodium 142 mmol/L (137-145); Total Bilirubin 1.3 mg/dL (0.2-1.3); Total Protein 6.4 g/dL (6.3-8.2)
--- NOTE | 2024-09-17 11:51 | CT ---
EXAMINATION TYPE: CT abdomen pelvis wo con CT DLP: 601 mGycm, Automated exposure control for dose reduction was used. DATE OF EXAM: 09/17/2024 11:42 AM COMPARISON: CT abdomen pelvis 09/06/2024 CLINICAL INDICATION:Female, 88 years old with history of abdominal pain, constipation; c/o constipati on TECHNIQUE: Standard CT of the abdomen and pelvis without IV or oral contrast. Lack of IV or oral co ntrast limits evaluation of solid and hollow organ viscera. Coronal and sagittal reformats were perfo rmed. FINDINGS: LOWER CHEST: No significant findings. ABDOMEN LIVER: Stable right hepatic dome 2.3 cm simple-appearing cyst. GALLBLADDER AND BILE DUCTS: Layering increased densities within the lumen consistent with gallstones are present. No biliary ductal dilatation. PANCREAS: Unremarkable. SPLEEN: Unremarkable. ADRENAL GLANDS: Unremarkable right adrenal gland. Stable left adrenal gland hypodense 2.5 cm nodule w ith a Hounsfield unit of -7. Consistent with a lipid rich benign adrenal adenoma. No follow-up recomm ended. KIDNEYS AND URETERS: No evidence of hydronephrosis or renal calculus. The ureters are unremarkable. PELVIS BLADDER: Distended. REPRODUCTIVE: Unremarkable noncontrast appearance. ABDOMEN & PELVIS STOMACH AND BOWEL: Second portion duodenal diverticulum. Sigmoid diverticulosis without evidence for acute diverticulitis. Mild colonic stool burden. No focal bowel wall thickening or surrounding inflam matory changes. The appendix is within normal limits. No evidence of bowel obstruction. PERITONEUM: No evidence of pneumoperitoneum or free fluid. VASCULATURE: Mild to moderate atherosclerotic calcifications are present throughout the abdominal aor ta and its branches. No evidence of aortic aneurysm. MUSCULOSKELETAL: No acute osseous abnormalities. Postsurgical changes from bilateral total hip arthro plasty. This creates streak artifact which limits evaluation of the pelvis. Moderate multilevel degen erative disc disease of the visualized thoracolumbar spine. LYMPH NODES: No gross evidence for lymphadenopathy. SOFT TISSUE/ABDOMINAL WALL: Small fat filled umbilical hernia. IMPRESSION: 1. No CT evidence for acute abdominal/pelvic process. 2. Mild colonic stool burden. 3. Stable lipid rich left adrenal adenoma. No follow up recommended. 4. Cholelithiasis. 5. Sigmoid diverticulosis without evidence for acute diverticulitis. 6. Distended urinary bladder. [facility], , 09/17/2024 11:49 AM
[2024-09-17 11:57] VITALS: BP 154/75; PULSE 77
[2024-09-17 12:20] LABS: Amorphous Sediment,Urine Rare /hpf; Appearance,Urine Turbid (Clear); Bacteria,Urine Moderate /hpf; Bilirubin,Urine Negative (Negative); Blood,Urine Trace (Negative); Color,Urine Colorless; Glucose,Urine (UA) Negative (Negative); Ketones,Urine Negative (Negative); Leukocyte Esterase,Urine Large (Negative); Nitrite,Urine Negative (Negative); PH, Urine 7.5 (5.0-8.0); Protein,Urine Negative (Negative); RBC,Urine 5 /hpf (0-5); Specific Gravity,Urine 1.005 (1.001-1.035); Squamous Epithelial Cell,Urine 67 /hpf (0-4); Urobilinogen,Urine <2.0 mg/dL (<2.0); WBC,Urine 50 /hpf (0-5)
[2024-09-17] MEDS: cefTRIAXone IN SWFI 1,000 MG/10 ML SYRINGE IVP STA (14:16)
[2024-09-17 14:31] LABS: Appearance,Urine Clear (Clear); Bilirubin,Urine Negative (Negative); Blood,Urine Negative (Negative); Color,Urine Colorless; Glucose,Urine (UA) Negative (Negative); Ketones,Urine Negative (Negative); Leukocyte Esterase,Urine Negative (Negative); Nitrite,Urine Negative (Negative); PH, Urine 7.5 (5.0-8.0); Protein,Urine Negative (Negative); Specific Gravity,Urine 1.003 (1.001-1.035); Urobilinogen,Urine <2.0 mg/dL (<2.0)
== END 2024-09-17 15:16 | disposition home or self-care (01) ==
LOC: EC 10:33
DX: K59.00 Constipation, unspecified (principal); R33.9 Retention of urine, unspecified; Z87.891 Personal history of nicotine dependence; Z88.0 Allergy status to penicillin; Z88.2 Allergy status to sulfonamides; Z91.041 Radiographic dye allergy status; Z88.8 Allergy status to other drugs, medicaments and biological substances
CPT/HCPCS: 36415; 93005; 80053; 82150; 83605; 83690; 84484; 85025; 81003; 81001; 87086; 74176; 99285; 96374; 51702; 51798; J0696

== ENCOUNTER 2024-10-18 14:25 | Emergency (ER) | payer OTHER, MEDICARE ==
--- NOTE | 2024-10-18 15:38 | ED ---
Allergic Reaction HPI - General Source: patient, RN notes reviewed Mode of arrival: EMS Limitations: no limitations - History of Present Illness MD Complaint: allergic reaction <Ruby Jacinto - Last Filed: 10/18/24 18:19> <Maria Victoria Jain - Last Filed: 10/21/24 10:18> - General Chief complaint: Allergic Reaction Stated complaint: Abd Pain Time Seen by Provider: 10/18/24 14:50 - History of Present Illness Initial Comments: This is an 89-year-old female who presents to the emergency department for concerns of an allergic reaction and shortness of breath. Patient was prescr ibed Amitiza for constipation and took the first dose today. States that about an hour afterwards she felt like she could not breathe. Said that she is allergic to multiple medications and tends to have severe reactions. She never taken this medication before. States that she still feels somewhat short of breath and is having epigastric fullness, which typically occurs when she is constipated. Last bowel movement was yesterday. Denies any nausea/vomiting. She is still passing gas. She did not take any medication such as Benadryl for the possible reaction. (Ruby Jacinto) - Related Data Home Medications Medication Instructions Recorded Confirmed Ascorbic Acid [Vitamin C with Brea 500 mg PO DAILY 03/01/15 09/30/24 Hips] Levothyroxine Sodium [Synthroid] 50 mcg PO DAILY 03/01/15 10/02/24 Nortriptyline [Pamelor] 25 mg PO AC-LUNCH 03/01/15 10/02/24 Ubidecarenone [Co Q-10] 200 mg PO DAILY 03/01/15 09/30/24 chlordiazePOXIDE HCl [Librium] 25 mg PO AC-LUNCH 03/01/15 10/02/24 [place]-3 Fatty Acids [[place]-3] 1,000 mg PO DAILY 03/08/15 10/02/24 Cyanocobalamin [Vitamin B-12] 500 mcg PO DAILY 03/11/18 09/30/24 Losartan Potassium [Cozaar] 100 mg PO BID 03/11/18 10/02/24 Magnesium 400 mg PO DAILY 03/11/18 09/30/24 Multivitamins, Thera [Multivitamin 1 tab PO DAILY 03/11/18 09/30/24 (formulary)] Vitamin C/Biotin [Hair, Skin and 1 tab PO DAILY 03/11/18 09/30/24 Nails Chew] Cholecalciferol (Vitamin D3) 50 mcg PO DAILY 09/17/24 09/30/24 [Vitamin D3 (50 Mcg = 2000 Iu)] Docusate [Colace] 100 mg PO DAILY 09/17/24 09/30/24 Lactulose [Constulose] 20 gm PO BID PRN 09/17/24 09/30/24 Lubiprostone [Amitiza] 24 mcg PO BID 09/17/24 10/02/24 NIFEdipine XL [Procardia XL] 60 mg PO BID 09/17/24 10/02/24 levOCARNitine [l-Carnitine] 500 mg PO DAILY 09/17/24 09/30/24 polyethylene glycoL 3350 [Miralax] 17 gm PO TID 09/17/24 10/02/24 Allergies Allergy/AdvReac Type Severity Reaction Status Date / Time iodine Allergy Anaphylaxis Verified 10/02/24 09:19 Penicillins Allergy Anaphylaxis Verified 10/02/24 09:19 - Almost Sulfa (Sulfonamide Allergy Anaphylaxis- Verified 10/02/24 09:19 Antibiotics) Almost amlodipine [From Norvasc] AdvReac Unknown Unknown Verified 10/02/24 09:19 MULTIPLE DRUG ALLERGIES Allergy Severe STATES Uncoded 10/02/24 09:19 (UNKNOWN) SEVERE REACTIONS TO SEVERAL MEDS WITH UNKNOWN NAMES. Review of Systems ROS Other: All systems not noted in ROS Statement are negative. <Ruby Jacinto - Last Filed: 10/18/24 18:19> ROS Other: All systems not noted in ROS Statement are negative. <Maria Victoria Jain - Last Filed: 10/21/24 10:18> ROS Statement: Those systems with pertinent positive or pertinent negative responses have been documented in the HPI. Past Medical History Past Medical History: Eye Disorder, Hypertension, Osteoarthritis (OA), Thyroid Disorder Additional Past Medical History / Comment(s): ARTHRITIS LOWER BACK, "dry eyes", hypothyroidism, "bladder not emptying properly due to constipation" - had villalobos catheter recently History of Any Multi-Drug Resistant Organisms: None Reported Past Surgical History: Joint Replacement, Orthopedic Surgery Additional Past Surgical History / Comment(s): rhonda hip replacements, Other SX: ORIF LT WRIST 2008, bilat. cataracts Past Anesthesia/Blood Transfusion Reactions: Previous Problems w/ Anesthesia Additional Past Anesthesia/Blood Transfusion Reaction / Comment(s): HARD TO WAKE UP Past Psychological History: Anxiety Smoking Status: Former smoker - Past Family History Brother(s) Family Medical History: Cancer Sister(s) Family Medical History: Cancer Father Family Medical History: Cancer Additional Family Medical History / Comment(s): LEUKEMIA Mother Family Medical History: Myocardial Infarction (DE) <Ruby Jacinto - Last Filed: 10/18/24 18:19> General Exam Limitations: no limitations General appearance: alert, in no apparent distress Head exam: Present: atraumatic, normocephalic, normal inspection Respiratory exam: Present: normal lung sounds bilaterally. Absent: respiratory distress, wheezes, rales, rhonchi, stridor Cardiovascular Exam: Present: regular rate, normal rhythm GI/Abdominal exam: Present: soft. Absent: distended, tenderness Neurological exam: Present: alert, oriented X3, CN II-XII intact Psychiatric exam: Present: normal affect, normal mood Skin exam: Present: warm, dry, intact, normal color. Absent: rash <Ruby Jacinto - Last Filed: 10/18/24 18:19> Course Vital Signs 10/18/24 10/18/24 10/18/24 14:44 15:08 15:10 Temperature 97.9 F 83 F L Pulse Rate 94 Respiratory 16 20 Rate Blood Pressure 122/71 O2 Sat by Pulse 99 99 Oximetry 10/18/24 10/18/24 18:01 20:25 Temperature 97.9 F 97.8 F Pulse Rate 80 Respiratory 18 Rate Blood Pressure 143/85 O2 Sat by Pulse 98 Oximetry Medical Decision Making - Lab Data Result diagrams: 10/18/24 15:46 10/18/24 15:46 - Radiology Data Radiology results: report reviewed, image reviewed <Ruby Jacinto - Last Filed: 10/18/24 18:19> - Lab Data Result diagrams: 10/18/24 15:46 10/18/24 15:46 <Maria Victoria Jain - Last Filed: 10/21/24 10:18> - Medical Decision Making This is an 89-year-old female who presents to the emergency department for shortness of breath and concerns of allergic reaction. Was pt. sent in by a medical professional or institution? @ -No Did you speak to anyone other than the patient for history? @ -No Did you review nursing and triage notes? @ -Yes, and I agree, it is accurate with regards to the patient's symptoms. Were old charts reviewed? @ -No Differential Diagnosis? @ -Differential Dyspnea: Coronary syndrome, arrhythmia, tamponade, asthma, COPD, pulmonary embolism, pneumonia, pneumothorax, pulmonary effusion, anaphylaxis, diabetic ketoacidosis, flailed chest, pulmonary contusion, diaphragmatic rupture, anemia, neurom uscular, this is not meant to be an all-inclusive list. EKG interpreted by me (3pts min.)? @ -EKG interpreted by me demonstrating the following: Sinus rhythm. Ventricular rate 71 bpm, [place] interval 155 ms, QRS duration 89 ms, QTc 398 ms. X-rays interpreted by me (1pt min.)? @ -Chest x-ray obtained, my interpretation identifies no localized consol idations or infiltrates. KUB x-ray obtained. My interpretation identifies no dilation of the bowel loops. CT interpreted by me (1pt min.)? @ -Not obtained U/S interpreted by me (1pt. min.)? @ -Not obtained What testing was considered but not performed? (CT, X-rays, U/S, labs)? Why? @ -None What meds were considered but not given? Why? @ -None Did you discuss the management of the patient with other professionals? @ -No Did you reconcile home meds? @ -No Was smoking cessation discussed for >3mins.? @ -No Was critical care preformed (if so, how long)? @ -No Were there social determinants of health that impacted care today? How? (Homelessness, low income, unemployed, alcoholism, drug addiction, transportation, low edu. Level, literacy, decrease access to med. care, assisted, rehab)? @ -No Was there de-escalation of care discussed even if they declined? (Discuss DNR or withdrawal of care, Hospice)? @ -No What co-morbidities impacted this encounter? (DM, HTN, Smoking, COPD, CAD, Cancer, CVA, Hep., AIDS, mental health diagnosis, sleep apnea, morbid obesity)? @ -None Was patient admitted / discharged? @ -Discharged. Lab work unremarkable. Chest x-ray demonstrated subtle hazine ss in the right midlung that may represent developing airspace disease. However, patient's previously noted shortness of breath has since resolved, she is not having any coughing/congestion and there is no leukocytosis to suggest infection and will avoid treatment at this time, especially given patient's multiple medication allergies. KUB x-ray reveals no acute process. Patient requesting an enema for the constipation she has been experiencing. This was administered. Case signed out to Maria Victoria Jain PA-C, at shift completion pending enema results and disposition. Undiagnosed new problem with uncertain prognosis? @ -None Drug Therapy requiring intensive monitoring for toxicity (Heparin, Nitro, Insulin, Cardizem)? @ -None Were any procedures done? @ -None (Ruby Jacinto) I saw and evaluated this patient following signout at shift change. Patient did not have any significant bowel movement following the enema. Patient does report still having lower abdominal fullness. She does report having recent urination does not has had issues with urinary retention in the past. Because of this a postvoid bladder scan was obtained which revealed greater than 900 cc of urine. Patient had a Villalobos catheter placed. Advised her to follow-up with urology. She will be discharged home at this time. She is understanding agreeable with plan. Patient stable at time of discharge. Case discussed with Dr. Miller (Maria Victoria Jain) - Lab Data Lab Results 10/18/24 10/18/24 10/18/24 Range/Units 15:46 15:46 15:46 WBC 8.39 (4.50-10.00) 10*3/uL RBC 4.34 (4.10-5.20) 10*6/uL Hgb 13.4 (12.0-15.0) g/dL Hct 39.1 (37.2-46.3) % MCV 90.1 (80.0-97.0) fL MCH 30.9 (27.0-32.0) pg MCHC 34.3 (32.0-37.0) g/dL Plt Count 320 (140-440) 10*3/uL MPV 9.8 (9.5-12.2) fL Immature Gran % (Auto) 0.2 % Neutrophils % 67.7 % Lymphocytes % 24.4 % Monocytes % 6.4 % Eosinophils % 0.6 % Basophils % 0.7 % Immature Gran # 0.02 (0.00-0.04) 10*3/uL Neutrophils # 5.67 (1.80-7.70) 10*3/uL Lymphocytes # 2.05 (0.90-5.00) 10*3/uL Monocytes # 0.54 (0.20-1.00) 10*3/uL Eosinophils # 0.05 (0.04-0.35) 10*3/uL Basophils # 0.06 (0.00-0.10) 10*3/uL Sodium 140 (137-145) mmol/L Potassium 4.2 (3.5-5.1) mmol/L Chloride 108 H (98-107) mmol/L Carbon Dioxide 22 (22-30) mmol/L Anion Gap 10 mmol/L BUN 9 (7-17) mg/dL Creatinine 0.62 (0.52-1.04) mg/dL Est GFR (CKD-EPI)AfAm >90 (>60 ml/min/1.73 sqM) Est GFR (CKD-EPI)NonAf 82 (>60 ml/min/1.73 sqM) Glucose 105 H (74-99) mg/dL Calcium 9.8 (8.4-10.2) mg/dL Magnesium 2.1 (1.6-2.3) mg/dL Total Bilirubin 1.3 (0.2-1.3) mg/dL AST 28 (14-36) U/L ALT 11 (4-34) U/L Alkaline Phosphatase 88 (38-126) U/L Troponin I <0.012 (0.000-0.034) ng/mL NT-Pro-B Natriuret Pep 40 pg/mL Total Protein 6.9 (6.3-8.2) g/dL Albumin 4.1 (3.5-5.0) g/dL Lipase 179 (23-300) U/L Disposition <Ruby Jacinto - Last Filed: 10/18/24 18:19> Is patient prescribed a controlled substance at d/c from ED?: No <Maria Victoria Jain - Last Filed: 10/21/24 10:18> Clinical Impression: Villalobos catheter in place, Urinary retention Disposition: HOME SELF-CARE Condition: Stable Instructions (If sedation given, give patient instructions): Chronic Urinary Retention in Women (ED) Additional Instructions: Please follow-up with urology. Return to the emergency department for new or worsening symptoms. Referrals: Momo Baez MD [Primary Care Provider] - 1-2 days Frank Waddell MD [STAFF PHYSICIAN] - 1-2 days
[2024-10-18 15:58] LABS: Basophils # (A) 0.06 10*3/uL (0.00-0.10); Basophils % (A) 0.7 %; Eosinophils # (A) 0.05 10*3/uL (0.04-0.35); Eosinophils % (A) 0.6 %; HCT 39.1 % (37.2-46.3); HGB 13.4 g/dL (12.0-15.0); Lymphocytes # (A) 2.05 10*3/uL (0.90-5.00); Lymphocytes % (A) 24.4 %; MCH 30.9 pg (27.0-32.0); MCHC 34.3 g/dL (32.0-37.0); MCV 90.1 fL (80.0-97.0); Mean Platelet Volume 9.8 fL (9.5-12.2); Monocytes # (A) 0.54 10*3/uL (0.20-1.00); Monocytes % (A) 6.4 %; Neutrophils # (A) 5.67 10*3/uL (1.80-7.70); Neutrophils % (A) 67.7 %; Platelet Count 320 10*3/uL (140-440); RBC 4.34 10*6/uL (4.10-5.20); RDW 13.5 % (11.5-14.5); WBC 8.39 10*3/uL (4.50-10.00)
[2024-10-18 16:17] LABS: ALT 11 U/L (4-34); African American GFR (CKD) >90 (>60 ml/min/1.73 sqM); Albumin 4.1 g/dL (3.5-5.0); Anion Gap 10 mmol/L; Blood Urea Nitrogen 9 mg/dL (7-17); Calcium 9.8 mg/dL (8.4-10.2); Carbon Dioxide 22 mmol/L (22-30); Chloride 108 mmol/L (98-107); Glucose 105 mg/dL (74-99); Lipase 179 U/L (23-300); Non-African American GFR(CKD) 82 (>60 ml/min/1.73 sqM); Sodium 140 mmol/L (137-145); Total Bilirubin 1.3 mg/dL (0.2-1.3); Total Protein 6.9 g/dL (6.3-8.2)
[2024-10-18 16:18] LABS: AST 28 U/L (14-36); Alkaline Phosphatase 88 U/L (38-126); Magnesium 2.1 mg/dL (1.6-2.3); Potassium 4.2 mmol/L (3.5-5.1)
[2024-10-18 16:25] LABS: NT-Pro-B-Type Natriuretic Pept 40 pg/mL
--- NOTE | 2024-10-18 16:42 | XR ---
EXAMINATION TYPE: XR KUB DATE OF EXAM: 10/18/2024 4:09 PM CLINICAL INDICATION:Female, 89 years old with history of Constipation; PHH, pain COMPARISON: None. TECHNIQUE: One radiographic view of the abdomen was obtained. FINDINGS: The bowel gas pattern is nonspecific without dilated loops of small or large bowel. . Bilat eral hip arthroplasties are partially visualized. The osseous structures are intact. IMPRESSION: Nonspecific bowel gas pattern without radiographic evidence for acute process. Postsurgical changes. [facility], , 10/18/2024 4:39 PM
--- NOTE | 2024-10-18 16:45 | XR ---
EXAMINATION TYPE: XR chest 2V DATE OF EXAM: 10/18/2024 4:09 PM CLINICAL INDICATION:Female, 89 years old with history of MADHAV; PHH COMPARISON: Chest radiographs from TECHNIQUE: XR chest 2V Frontal view of the chest. FINDINGS: Lungs/Pleura: Lungs are slightly hyperexpanded. There is some hazy airspace opacities in the right mi dlung. No pleural effusions or pneumothorax appreciated. Pulmonary vascularity: Unremarkable. Heart/mediastinum: Cardiomediastinal silhouette is unremarkable. Musculoskeletal: No acute osseous pathology. IMPRESSION: Subtle haziness in the right midlung may represent developing airspace disease. No other acute cardio pulmonary process. [facility], , 10/18/2024 4:42 PM
[2024-10-18 20:26] VITALS: BP 143/85; PULSE 80; RESP 18; TEMP 97.8
== END 2024-10-18 20:59 | disposition home or self-care (01) ==
LOC: EC 14:25
DX: R33.9 Retention of urine, unspecified (principal); T83.098A Other mechanical complication of other urinary catheter, initial encounter; Z87.891 Personal history of nicotine dependence; Z88.0 Allergy status to penicillin; Z88.1 Allergy status to other antibiotic agents; Z88.2 Allergy status to sulfonamides; Z91.041 Radiographic dye allergy status; Z88.8 Allergy status to other drugs, medicaments and biological substances
CPT/HCPCS: 36415; 51702; 51798; 71046; 74018; 80053; 83690; 83735; 83880; 84484; 85025; 99285

== ENCOUNTER 2024-11-02 19:08 | Emergency (ER) | payer MEDICARE, OTHER ==
--- NOTE | 2024-11-02 19:39 | ED ---
Abdominal Pain HPI - General Source: patient, EMS, RN notes reviewed Mode of arrival: EMS Limitations: no limitations <Matilde Hung - Last Filed: 11/02/24 19:40> - General Source: patient, EMS, RN notes reviewed, old records reviewed Mode of arrival: EMS Limitations: no limitations - History of Present Illness MD Complaint: abdominal pain -: days(s) Location: diffuse, periumbilical, epigastric, suprapubic Radiation: epigastric, suprapubic Migration to: no migration Severity: moderate Severity scale (1-10): 4 Quality: cramping Consistency: intermittent Improves With: nothing Worsens With: nothing Associated Symptoms: nausea Treatments Prior to Arrival: other (0) <Humberto Holland - Last Filed: 11/03/24 01:24> - General Chief Complaint: Abdominal Pain Stated Complaint: Abd pain Time Seen by Provider: 11/02/24 19:38 - History of Present Illness Initial Comments: Quick [id number] female presenting for generalized abdominal pain. States she has been battling constipation recently and given a medication for constipation by her primary care doctor. States she has come into the hospital for similar symptoms in the past few months and is usually discharged. Denies fevers, nausea, vomiting. (Matilde Hung) This is a 89-year-old female to ER here with abdominal pain nausea vomiting dehydration some constipation she is on medication for constipation and persistent abdominal pain (Humberto Holland) - Related Data Home Medications Medication Instructions Recorded Confirmed Ascorbic Acid [Vitamin C with Brea 500 mg PO DAILY 03/01/15 09/30/24 Hips] Levothyroxine Sodium [Synthroid] 50 mcg PO DAILY 03/01/15 10/02/24 Nortriptyline [Pamelor] 25 mg PO AC-LUNCH 03/01/15 10/02/24 Ubidecarenone [Co Q-10] 200 mg PO DAILY 03/01/15 09/30/24 chlordiazePOXIDE HCl [Librium] 25 mg PO AC-LUNCH 03/01/15 10/02/24 Camanche-3 Fatty Acids [Camanche-3] 1,000 mg PO DAILY 03/08/15 10/02/24 Cyanocobalamin [Vitamin B-12] 500 mcg PO DAILY 03/11/18 09/30/24 Losartan Potassium [Cozaar] 100 mg PO BID 03/11/18 10/02/24 Magnesium 400 mg PO DAILY 03/11/18 09/30/24 Multivitamins, Thera [Multivitamin 1 tab PO DAILY 03/11/18 09/30/24 (formulary)] Vitamin C/Biotin [Hair, Skin and 1 tab PO DAILY 03/11/18 09/30/24 Nails Chew] Cholecalciferol (Vitamin D3) 50 mcg PO DAILY 09/17/24 09/30/24 [Vitamin D3 (50 Mcg = 2000 Iu)] Docusate [Colace] 100 mg PO DAILY 09/17/24 09/30/24 Lactulose [Constulose] 20 gm PO BID PRN 09/17/24 09/30/24 Lubiprostone [Amitiza] 24 mcg PO BID 09/17/24 10/02/24 NIFEdipine XL [Procardia XL] 60 mg PO BID 09/17/24 10/02/24 levOCARNitine [l-Carnitine] 500 mg PO DAILY 09/17/24 09/30/24 polyethylene glycoL 3350 [Miralax] 17 gm PO TID 09/17/24 10/02/24 Allergies Allergy/AdvReac Type Severity Reaction Status Date / Time iodine Allergy Anaphylaxis Verified 11/02/24 19:21 Penicillins Allergy Anaphylaxis Verified 11/02/24 19:21 - Almost Sulfa (Sulfonamide Allergy Anaphylaxis- Verified 11/02/24 19:21 Antibiotics) Almost amlodipine [From [facility]] AdvReac Unknown Unknown Verified 11/02/24 19:21 amitriptyline AdvReac patient Verified 11/03/24 00:11 states dizziness lubiprostone AdvReac patient Verified 11/03/24 00:12 states just makes me not feel well so quit taking MULTIPLE DRUG ALLERGIES Allergy Severe STATES Uncoded 11/02/24 19:21 (UNKNOWN) SEVERE REACTIONS TO SEVERAL MEDS WITH UNKNOWN NAMES. Review of Systems ROS Other: All systems not noted in ROS Statement are negative. <Matilde Hung - Last Filed: 11/02/24 19:40> ROS Other: All systems not noted in ROS Statement are negative. <Humberto Holland - Last Filed: 11/03/24 01:24> ROS Statement: Those systems with pertinent positive or pertinent negative responses have been documented in the HPI. Past Medical History Past Medical History: Eye Disorder, Hypertension, Osteoarthritis (OA), Thyroid Disorder Additional Past Medical History / Comment(s): ARTHRITIS LOWER BACK, "dry eyes", hypothyroidism, "bladder not emptying properly due to constipation" - had villalobos catheter recently History of Any Multi-Drug Resistant Organisms: None Reported Past Surgical History: Joint Replacement, Orthopedic Surgery Additional Past Surgical History / Comment(s): rhonda hip replacements, Other SX: ORIF LT WRIST 2009, bilat. cataracts Past Anesthesia/Blood Transfusion Reactions: Previous Problems w/ Anesthesia Additional Past Anesthesia/Blood Transfusion Reaction / Comment(s): HARD TO WAKE UP Past Psychological History: Anxiety Smoking Status: Former smoker Past Alcohol Use History: None Reported Past Drug Use History: None Reported - Past Family History Brother(s) Family Medical History: Cancer Sister(s) Family Medical History: Cancer Father Family Medical History: Cancer Additional Family Medical History / Comment(s): LEUKEMIA Mother Family Medical History: Myocardial Infarction (MT) <Matilde Hung - Last Filed: 11/02/24 19:40> General Exam Limitations: no limitations <Matilde Hung - Last Filed: 11/02/24 19:40> General appearance: alert, in no apparent distress Head exam: Present: atraumatic, normocephalic, normal inspection Eye exam: Present: normal appearance, PERRL, EOMI. Absent: scleral icterus, conjunctival injection, periorbital swelling ENT exam: Present: normal exam, mucous membranes moist Neck exam: Present: normal inspection. Absent: tenderness, meningismus, lymphadenopathy Respiratory exam: Present: normal lung sounds bilaterally. Absent: respiratory distress, wheezes, rales, rhonchi, stridor Cardiovascular Exam: Present: regular rate, normal rhythm, normal heart sounds. Absent: systolic murmur, diastolic murmur, rubs, gallop, clicks GI/Abdominal exam: Present: soft, normal bowel sounds. Absent: distended, tenderness, guarding, rebound, rigid Extremities exam: Present: normal inspection, full ROM, normal capillary refill. Absent: tenderness, pedal edema, joint swelling, calf tenderness Back exam: Present: normal inspection Neurological exam: Present: alert, oriented X3, CN II-XII intact Psychiatric exam: Present: normal affect, normal mood Skin exam: Present: warm, dry, intact, normal color. Absent: rash <Humberto Holland - Last Filed: 11/03/24 01:24> - General Exam Comments Initial Comments: Visual Physical Exam Vital signs reviewed General: Well-appearing, nontoxic, no acute distress. Head: Normocephalic, atraumatic Eyes: PERRLA, EOMI ENT: Airway patent Chest: Nonlabored breathing Skin: No visual rash, normal skin tone Neuro: Alert and oriented 3 Musculoskeletal: No gross abnormalities (Matilde Hung) Course <Humberto Holland - Last Filed: 11/03/24 01:24> Vital Signs 11/02/24 11/02/24 19:16 23:56 Temperature 98.3 F 97.8 F Pulse Rate 85 90 Respiratory 18 19 Rate Blood Pressure 125/81 159/74 O2 Sat by Pulse 99 97 Oximetry - Reevaluation(s) Reevaluation #1: 11/03/24 01:23 Medical records reviewed (Humberto Holland) Reevaluation #2: 11/03/24 01:23 Patient symptoms improved (Humberto Holland) Reevaluation #3: 11/03/24 01:23 Patient informed of results questions answered (Humberto Holland) Reevaluation #4: Was pt. sent in by a medical professional or institution (, PA, OVEN LABORER, urgent care, hospital, or halfway...) When possible be specific @ -no Did you speak to anyone other than the patient for history (EMS, parent, family, police, friend...)? What history was obtained from this source @ -no Did you review nursing and triage notes (agree or disagree)? Why? @ -agree Are old charts reviewed (outside hosp., previous admission, EMS record, old EKG, old radiological studies, urgent care reports/EKG's, halfway records)? Report findings @ -yes Differential Diagnosis (chest pain, altered mental status, abdominal pain women, abdominal pain men, vaginal bleeding, weakness, fever, dyspnea, syncope, headache, dizziness, GI bleed, back pain, seizure, CVA, palpatations, mental health, musculoskeletal)? @ -prior EKG interpreted by me (3pts min.). @ -yes X-rays interpreted by me (1pt min.). @ -yes negative for acute disease CT interpreted by me (1pt min.). @ -no U/S interpreted by me (1pt. min.). @ -no What testing was considered but not performed or refused? (CT, X-rays, U/S, labs)? Why? @ -none What meds were considered but not given or refused? Why? @ -none Did you discuss the management of the patient with other professionals (prof vincent i.e. , PA, OVEN LABORER, lab, RT, psych nurse, manager social work, personnel training officer, teacher, senior credit officer, home health care case manager)? Give summary @ -no Was smoking cessation discussed for >3mins.? @ -no Was critical care preformed (if so, how long)? @ -no Were there social determinants of health that impacted care today? How? (Homelessness, low income, unemployed, alcoholism, drug addiction, transportation, low edu. Level, literacy, decrease access to med. care, detention, rehab)? @ -none Was there de-escalation of care discussed even if they declined (Discuss DNR or withdrawal of care, Hospice)? DNR status @ -no What co-morbidities impacted this encounter? (DM, HTN, Smoking, COPD, CAD, Cancer, CVA, ARF, Chemo, Hep., AIDS, mental health diagnosis, sleep apnea, morbid obesity)? @ -none Was patient admitted / discharged? Hospital course, mention meds given and route, prescriptions, significant lab abnormalities, going to OR and other pertinent info. @ - Undiagnosed new problem with uncertain prognosis? @ -no Drug Therapy requiring intensive monitoring for toxicity (Heparin, Nitro, Insulin, Cardizem)? @ -no Were any procedures done? @ -no Diagnosis/symptom? @ - Acute, or Chronic, or Acute on Chronic? @ -Acute Uncomplicated (without systemic symptoms) or Complicated (systemic symptoms)? @ -Complicated Side effects of treatment? @ -no Exacerbation, Progression, or Severe Exacerbation? @ -exacerbation Poses a threat to life or bodily function? How? (Chest pain, USA, MT, pneumonia, PE, COPD, DKA, ARF, appy, cholecystitis, CVA, Diverticulitis, Homicidal, Suicidal, threat to staff... and all critical care pts) @ -yes (Roskopp,Humberto B) Reevaluation #5: Differential Abdominal Pain Women: Appendicitis, Cholecystitis, diverticulosis, ischemic bowel, pancreatitis, hepatitis, UTI, gastroenteritis, AAA, incarcerated hernia, bowel obstruction, constipation, inflammatory bowel, hepatitis, peptic ulcer disease, splenic infarction, perforated viscus, vulvitis, ovarian torsion, PID, kidney stone, placenta abruption, this is not meant to be an all-inclusive list (Humberto Holland) Medical Decision Making <Matilde Hung - Last Filed: 11/02/24 19:40> - Lab Data Result diagrams: 11/02/24 22:13 11/02/24 22:13 - Radiology Data Radiology results: report reviewed (X-ray KUB and a CT of the abdomen pelvis is negative for acute disease), image reviewed <Humberto Holland - Last Filed: 11/03/24 01:24> - Medical Decision Making I completed the quick note portion of this chart signed Matilde Hung PA-C (Matilde Hung) 89 female to ER for abdominal pain found to have constipation with nausea and vomiting symptoms improved patient feels well and can be discharged home (Humberto Holland) - Lab Data Lab Results 11/02/24 11/02/24 11/02/24 Range/Units 22:13 22:13 22:13 WBC 9.31 (4.50-10.00) 10*3/uL RBC 4.24 (4.10-5.20) 10*6/uL Hgb 13.2 (12.0-15.0) g/dL Hct 38.3 (37.2-46.3) % MCV 90.3 (80.0-97.0) fL MCH 31.1 (27.0-32.0) pg MCHC 34.5 (32.0-37.0) g/dL Plt Count 292 (140-440) 10*3/uL MPV 9.9 (9.5-12.2) fL Immature Gran % (Auto) 0.3 % Neutrophils % 55.4 % Lymphocytes % 34.7 % Monocytes % 7.3 % Eosinophils % 1.4 % Basophils % 0.9 % Immature Gran # 0.03 (0.00-0.04) 10*3/uL Neutrophils # 5.16 (1.80-7.70) 10*3/uL Lymphocytes # 3.23 (0.90-5.00) 10*3/uL Monocytes # 0.68 (0.20-1.00) 10*3/uL Eosinophils # 0.13 (0.04-0.35) 10*3/uL Basophils # 0.08 (0.00-0.10) 10*3/uL Sodium 140 (137-145) mmol/L Potassium 3.7 (3.5-5.1) mmol/L Chloride 105 (98-107) mmol/L Carbon Dioxide 23 (22-30) mmol/L Anion Gap 12 mmol/L BUN 12 (7-17) mg/dL Creatinine 0.61 (0.52-1.04) mg/dL Est GFR (CKD-EPI)AfAm >90 (>60 ml/min/1.73 sqM) Est GFR (CKD-EPI)NonAf 82 (>60 ml/min/1.73 sqM) Glucose 95 (74-99) mg/dL Plasma Lactic Acid Anmol 1.0 (0.7-2.0) mmol/L Calcium 10.2 (8.4-10.2) mg/dL Total Bilirubin 1.0 (0.2-1.3) mg/dL AST 22 (14-36) U/L ALT 11 (4-34) U/L Alkaline Phosphatase 105 (38-126) U/L Total Protein 6.8 (6.3-8.2) g/dL Albumin 4.2 (3.5-5.0) g/dL Lipase 243 (23-300) U/L Disposition <Matilde Hung - Last Filed: 11/02/24 19:40> Is patient prescribed a controlled substance at d/c from ED?: No Time of Disposition: 01:00 <Humberto Holland - Last Filed: 11/03/24 01:24> Clinical Impression: Abdominal pain, Constipation Disposition: HOME SELF-CARE Condition: Good Instructions (If sedation given, give patient instructions): Abdominal Pain (ED) Referrals: Kitty Baez DO [Primary Care Provider] - 1-2 days
--- NOTE | 2024-11-02 20:28 | XR ---
EXAMINATION TYPE: XR KUB DATE OF EXAM: 11/02/2024 8:15 PM COMPARISON: Prior abdominal radiograph 10/18/2024. CLINICAL INDICATION: Female, 89 years old with history of abdominal pain, constipation; PHH, pain TECHNIQUE: One radiographic view of the abdomen was obtained. FINDINGS: Nonspecific bowel gas pattern and scattered air-fluid levels. Moderate diffuse colonic stoo l burden. Partially visualized lower lung zones. No acute pathology. Lumbosacral spine degenerative c hanges. Bilateral hip arthroplasty devices. No definite evidence of nephrolithiasis. IMPRESSION: Scattered air-fluid levels and moderate diffuse colonic stool burden. Recommend clinical correlation for ileus. [facility], , 11/02/2024 8:26 PM
[2024-11-02 22:28] LABS: Basophils # (A) 0.08 10*3/uL (0.00-0.10); Basophils % (A) 0.9 %; Eosinophils # (A) 0.13 10*3/uL (0.04-0.35); Eosinophils % (A) 1.4 %; HCT 38.3 % (37.2-46.3); HGB 13.2 g/dL (12.0-15.0); Lymphocytes # (A) 3.23 10*3/uL (0.90-5.00); Lymphocytes % (A) 34.7 %; MCH 31.1 pg (27.0-32.0); MCHC 34.5 g/dL (32.0-37.0); MCV 90.3 fL (80.0-97.0); Mean Platelet Volume 9.9 fL (9.5-12.2); Monocytes # (A) 0.68 10*3/uL (0.20-1.00); Monocytes % (A) 7.3 %; Neutrophils # (A) 5.16 10*3/uL (1.80-7.70); Neutrophils % (A) 55.4 %; Platelet Count 292 10*3/uL (140-440); RBC 4.24 10*6/uL (4.10-5.20); RDW 13.4 % (11.5-14.5); WBC 9.31 10*3/uL (4.50-10.00)
[2024-11-02 22:51] LABS: ALT 11 U/L (4-34); AST 22 U/L (14-36); African American GFR (CKD) >90 (>60 ml/min/1.73 sqM); Albumin 4.2 g/dL (3.5-5.0); Alkaline Phosphatase 105 U/L (38-126); Anion Gap 12 mmol/L; Blood Urea Nitrogen 12 mg/dL (7-17); Calcium 10.2 mg/dL (8.4-10.2); Carbon Dioxide 23 mmol/L (22-30); Chloride 105 mmol/L (98-107); Glucose 95 mg/dL (74-99); Lipase 243 U/L (23-300); Non-African American GFR(CKD) 82 (>60 ml/min/1.73 sqM); Potassium 3.7 mmol/L (3.5-5.1); Sodium 140 mmol/L (137-145); Total Protein 6.8 g/dL (6.3-8.2)
[2024-11-03] MEDS: SODIUM CHLORIDE 0.9% 1,000 ML IV ONE (00:04)
[2024-11-03] MEDS: methylPREDNISolone SOD SUCCI 125 MG/2 ML VIAL IV STA (00:08)
[2024-11-03] MEDS: FAMOTIDINE 20 MG/2 ML VIAL IV STA (00:09)
[2024-11-03] MEDS: MORPHINE SULFATE 4 MG/ML SYRINGE IVP STA (00:09)
[2024-11-03] MEDS: ONDANSETRON 4 MG/2 ML VIAL IVP STA (00:09)
[2024-11-03] MEDS: diphenhydrAMINE 50 MG/ML 1 ML VIAL IVP STA (00:09)
--- NOTE | 2024-11-03 01:09 | CT ---
EXAM: CT Abdomen and Pelvis Without Intravenous Contrast CLINICAL HISTORY: CT Reason: pain TECHNIQUE: Axial computed tomography images of the abdomen and pelvis without intravenous contrast. CTDI is 9.3 mGy and DLP is 533.1 mGy-cm. This CT exam was performed using one or more of the following dose reduction techniques: automated exposure control, adjustment of the mA and/or kV according to patient size, and/or use of iterative reconstruction technique. COMPARISON: 09/17/2024 FINDINGS: Lung bases: Unremarkable. No mass. No consolidation. ABDOMEN: Liver: Unremarkable. Gallbladder and bile ducts: There is a 5 mm calcified gallstone in the dependent portion of the gallbladder. The gallbladder is nondilated. No surrounding inflammation. Pancreas: Unremarkable. No ductal dilation. Spleen: Unremarkable. No splenomegaly. Adrenals: Left adrenal adenoma measuring 2.4 cm and negative Hounsfield units, unchanged. Kidneys and ureters: Slight prominence of the renal pelvis bilaterally without overt hydronephrosis. No collecting system calculi are seen. Stomach and bowel: 7.7 cm of stool in the rectum suggesting constipation. Bowel loops are nondilated. There is diverticulosis of the sigmoid colon without evidence of acute diverticulitis. No acute inflammatory changes are seen involving the bowel. PELVIS: Appendix: No findings to suggest acute appendicitis. Bladder: The urinary bladder is borderline dilated measuring 14.5 cm long axis. No stones. Reproductive: Unremarkable as visualized. ABDOMEN and PELVIS: Intraperitoneal space: Unremarkable. No free air. No significant fluid collection. Bones/joints: Metal artifact from bilateral hip arthroplasties. No hip fracture or dislocation is seen. [id number] degenerative changes throughout the spine. No acute fracture or subluxation is seen. Soft tissues: Unremarkable. Vasculature: The abdominal aorta is mildly calcified but nondilated. Lymph nodes: Unremarkable. No enlarged lymph nodes. IMPRESSION: 1. The urinary bladder is borderline dilated measuring 14.5 cm long axis. If the patient is unable to void, consider urinary retention. 2. 7.7 cm of stool in the rectum suggesting constipation. 3. Slight prominence of the renal pelvis bilaterally without overt hydronephrosis. No collecting system calculi are seen. 4. Bowel loops are nondilated. There is diverticulosis of the sigmoid colon without evidence of acute diverticulitis. No acute inflammatory changes are seen involving the bowel.
[2024-11-03 01:47] VITALS: BP 151/76; PULSE 73; RESP 18; TEMP 97.6
[2024-11-03 01:51] LABS: Appearance,Urine Clear (Clear); Bilirubin,Urine Negative (Negative); Blood,Urine Negative (Negative); Color,Urine Colorless; Glucose,Urine (UA) Negative (Negative); Ketones,Urine Negative (Negative); Leukocyte Esterase,Urine Negative (Negative); Nitrite,Urine Negative (Negative); Protein,Urine Negative (Negative); Specific Gravity,Urine 1.004 (1.001-1.035); Urobilinogen,Urine <2.0 mg/dL (<2.0)
== END 2024-11-03 01:47 | disposition home or self-care (01) ==
LOC: EC 19:08
DX: K59.00 Constipation, unspecified (principal); Z87.891 Personal history of nicotine dependence; Z88.0 Allergy status to penicillin; Z88.2 Allergy status to sulfonamides; Z88.8 Allergy status to other drugs, medicaments and biological substances; Z88.5 Allergy status to narcotic agent
CPT/HCPCS: 36415; 74018; 74176; 80053; 81003; 83605; 83690; 85025; 96360; 96361; 99284

== ENCOUNTER 2024-11-23 19:13 | Emergency (ER) | payer MEDICARE, OTHER ==
[2024-11-23 19:19] VITALS: RESP 18
[2024-11-23 20:38] LABS: Basophils # (A) 0.05 10*3/uL (0.00-0.10); Basophils % (A) 0.6 %; Eosinophils # (A) 0.10 10*3/uL (0.04-0.35); Eosinophils % (A) 1.2 %; HCT 38.8 % (37.2-46.3); HGB 13.1 g/dL (12.0-15.0); Lymphocytes # (A) 2.37 10*3/uL (0.90-5.00); Lymphocytes % (A) 28.8 %; MCH 31.3 pg (27.0-32.0); MCHC 33.8 g/dL (32.0-37.0); MCV 92.6 fL (80.0-97.0); Monocytes # (A) 0.65 10*3/uL (0.20-1.00); Monocytes % (A) 7.9 %; Neutrophils # (A) 5.06 10*3/uL (1.80-7.70); Neutrophils % (A) 61.4 %; Platelet Count 266 10*3/uL (140-440); RBC 4.19 10*6/uL (4.10-5.20); RDW 13.3 % (11.5-14.5); WBC 8.24 10*3/uL (4.50-10.00)
[2024-11-23 20:50] LABS: INR 1.0 (<1.2); Partial Thromboplastin Time 22.2 sec (22.0-30.0); Prothrombin Time 11.2 sec (10.0-12.5)
[2024-11-23 20:56] LABS: ALT 12 U/L (4-34); AST 26 U/L (14-36); African American GFR (CKD) >90 (>60 ml/min/1.73 sqM); Albumin 4.2 g/dL (3.5-5.0); Alkaline Phosphatase 104 U/L (38-126); Anion Gap 12 mmol/L; Blood Urea Nitrogen 10 mg/dL (7-17); Calcium 10.2 mg/dL (8.4-10.2); Carbon Dioxide 26 mmol/L (22-30); Chloride 104 mmol/L (98-107); Glucose 99 mg/dL (74-99); Non-African American GFR(CKD) 81 (>60 ml/min/1.73 sqM); Potassium 4.0 mmol/L (3.5-5.1); Sodium 142 mmol/L (137-145); Total Protein 6.9 g/dL (6.3-8.2)
[2024-11-23 21:05] LABS: NT-Pro-B-Type Natriuretic Pept 41 pg/mL
--- NOTE | 2024-11-23 21:45 | XR ---
EXAMINATION TYPE: XR chest 2V DATE OF EXAM: 11/23/2024 9:01 PM COMPARISON: Chest radiographs from 10/18/2024. CLINICAL INDICATION: Female, 89 years old with history of difficulty breathing; MERGED WITH [facility] TECHNIQUE: XR chest 2V Frontal and lateral views of the chest. FINDINGS: Lungs/Pleura: There is no evidence of pleural effusion, focal consolidation, or pneumothorax. Pulmonary vascularity: Unremarkable. Heart/mediastinum: Cardiomediastinal silhouette is unremarkable. Musculoskeletal: No acute osseous pathology. IMPRESSION: No acute cardiopulmonary disease/process. [facility], , 11/23/2024 9:42 PM
[2024-11-23 22:49] LABS: Bilirubin,Urine Negative (Negative); Blood,Urine Negative (Negative); Color,Urine Colorless; Glucose,Urine (UA) Negative (Negative); Ketones,Urine Negative (Negative); Leukocyte Esterase,Urine Negative (Negative); Nitrite,Urine Negative (Negative); PH, Urine 7.5 (5.0-8.0); Protein,Urine Negative (Negative); Specific Gravity,Urine 1.003 (1.001-1.035); Urobilinogen,Urine <2.0 mg/dL (<2.0)
--- NOTE | 2024-11-23 22:57 | ED ---
Female Urogenital HPI - General Chief complaint: Urogenital Stated complaint: Feet Swelling Time Seen by Provider: 11/23/24 19:20 Source: patient Mode of arrival: EMS Limitations: no limitations - History of Present Illness Initial comments: 89-year-old female presents emergency department with lower extremity edema. States over the past couple of days she has had increased welling in her lower extremities. She has also had significant difficulty urinating. This is not new for the patient. States that she has had a Villalobos catheter multiple times and followed up with urology. The urologist told the patient that likely she would have to have a Villalobos catheter for the rest of her life however did not want to place this until the patient was seen next month. Patient also has chronic constipation. States that this has been doing better over the past month that she takes a significant amount of medications to move her bowels. She admits to lower abdominal fullness. No fevers no history of heart failure. No shortness of breath. No other alleviating, precipitating modifying factors - Related Data Home Medications Medication Instructions Recorded Confirmed Ascorbic Acid [Vitamin C with Brea 500 mg PO DAILY 03/01/15 09/30/24 Hips] Levothyroxine Sodium [Synthroid] 50 mcg PO DAILY 03/01/15 10/02/24 Nortriptyline [Pamelor] 25 mg PO AC-LUNCH 03/01/15 10/02/24 Ubidecarenone [Co Q-10] 200 mg PO DAILY 03/01/15 09/30/24 chlordiazePOXIDE HCl [Librium] 25 mg PO AC-LUNCH 03/01/15 10/02/24 [place]-3 Fatty Acids [[place]-3] 1,000 mg PO DAILY 03/08/15 10/02/24 Cyanocobalamin [Vitamin B-12] 500 mcg PO DAILY 03/11/18 09/30/24 Losartan Potassium [Cozaar] 100 mg PO BID 03/11/18 10/02/24 Magnesium 400 mg PO DAILY 03/11/18 09/30/24 Multivitamins, Thera [Multivitamin 1 tab PO DAILY 03/11/18 09/30/24 (formulary)] Vitamin C/Biotin [Hair, Skin and 1 tab PO DAILY 03/11/18 09/30/24 Nails Chew] Cholecalciferol (Vitamin D3) 50 mcg PO DAILY 09/17/24 09/30/24 [Vitamin D3 (50 Mcg = 2000 Iu)] Docusate [Colace] 100 mg PO DAILY 09/17/24 09/30/24 Lactulose [Constulose] 20 gm PO BID PRN 09/17/24 09/30/24 Lubiprostone [Amitiza] 24 mcg PO BID 09/17/24 10/02/24 NIFEdipine XL [Procardia XL] 60 mg PO BID 09/17/24 10/02/24 levOCARNitine [l-Carnitine] 500 mg PO DAILY 09/17/24 09/30/24 polyethylene glycoL 3350 [Miralax] 17 gm PO TID 09/17/24 10/02/24 Allergies Allergy/AdvReac Type Severity Reaction Status Date / Time iodine Allergy Anaphylaxis Verified 11/23/24 19:19 Penicillins Allergy Anaphylaxis Verified 11/23/24 19:19 - Almost Sulfa (Sulfonamide Allergy Anaphylaxis- Verified 11/23/24 19:19 Antibiotics) Almost amlodipine [From [facility]] AdvReac Unknown Unknown Verified 11/23/24 19:19 amitriptyline AdvReac patient Verified 11/23/24 19:19 states dizziness lubiprostone AdvReac patient Verified 11/23/24 19:19 states just makes me not feel well so quit taking MULTIPLE DRUG ALLERGIES Allergy Severe STATES Uncoded 11/23/24 19:19 (UNKNOWN) SEVERE REACTIONS TO SEVERAL MEDS WITH UNKNOWN NAMES. Review of Systems ROS Statement: Those systems with pertinent positive or pertinent negative responses have been documented in the HPI. ROS Other: All systems not noted in ROS Statement are negative. Past Medical History Past Medical History: Eye Disorder, Hypertension, Osteoarthritis (OA), Thyroid Disorder Additional Past Medical History / Comment(s): ARTHRITIS LOWER BACK, "dry eyes", hypothyroidism, "bladder not emptying properly due to constipation" - had villalobos catheter recently History of Any Multi-Drug Resistant Organisms: None Reported Past Surgical History: Joint Replacement, Orthopedic Surgery Additional Past Surgical History / Comment(s): rhonda hip replacements, Other SX: ORIF LT WRIST 2009, bilat. cataracts Past Anesthesia/Blood Transfusion Reactions: Previous Problems w/ Anesthesia Additional Past Anesthesia/Blood Transfusion Reaction / Comment(s): HARD TO WAKE UP Past Psychological History: Anxiety Smoking Status: Former smoker Past Alcohol Use History: None Reported Past Drug Use History: None Reported - Past Family History Brother(s) Family Medical History: Cancer Sister(s) Family Medical History: Cancer Father Family Medical History: Cancer Additional Family Medical History / Comment(s): LEUKEMIA Mother Family Medical History: Myocardial Infarction (DE) General Exam Limitations: no limitations General appearance: alert, in no apparent distress Head exam: Present: atraumatic, normocephalic, normal inspection Eye exam: Present: normal appearance, PERRL, EOMI. Absent: scleral icterus, conjunctival injection, periorbital swelling ENT exam: Present: normal exam, mucous membranes moist Neck exam: Present: normal inspection. Absent: tenderness, meningismus, l ymphadenopathy Respiratory exam: Present: normal lung sounds bilaterally. Absent: respiratory distress, wheezes, rales, rhonchi, stridor Cardiovascular Exam: Present: regular rate, normal rhythm, normal heart sounds. Absent: systolic murmur, diastolic murmur, rubs, gallop, clicks GI/Abdominal exam: Present: soft, distended (Fullness to the suprapubic region), normal bowel sounds. Absent: tenderness, guarding, rebound, rigid Extremities exam: Present: normal inspection, full ROM, normal capillary refill, pedal edema (1+ edema). Absent: tenderness, joint swelling, calf tenderness Back exam: Present: normal inspection Neurological exam: Present: alert, oriented X3, CN II-XII intact Psychiatric exam: Present: normal affect, normal mood Skin exam: Present: warm, dry, intact, normal color. Absent: rash Course Vital Signs 11/23/24 11/23/24 19:16 23:19 Temperature 97.7 F 97.8 F Pulse Rate 93 89 Respiratory 18 18 Rate Blood Pressure 153/66 146/75 O2 Sat by Pulse 98 96 Oximetry Medical Decision Making - Medical Decision Making Was pt. sent in by a medical professional or institution (, PA, [facility], urgent care, hospital, or long term...) When possible be specific @ -No Did you speak to anyone other than the patient for history (EMS, parent, family, police, friend...)? What history was obtained from this source @ -No Did you review nursing and triage notes (agree or disagree)? Why? @ -I reviewed and agree with nursing and triage notes Were old charts reviewed (outside hosp., previous admission, EMS record, old EKG, old radiological studies, urgent care reports/EKG's, long term records)? Report findings @ -I reviewed the chart from November 03 where patient was seen in the ER. CT demonstrated constipation and bladder enlargement Differential Diagnosis (chest pain, altered mental status, abdominal pain women, abdominal pain men, vaginal bleeding, weakness, fever, dyspnea, syncope, headache, dizziness, GI bleed, back pain, seizure, CVA, palpatations, mental health, musculoskeletal)? @ -Differential Abdominal Pain Women: Appendicitis, Cholecystitis, diverticulosis, ischemic bowel, pancreatitis, hepatitis, UTI, gastroenteritis, AAA, incarcerated hernia, bowel obstruction, constipation, inflammatory bowel, hepatitis, peptic ulcer disease, splenic infarction, perforated viscus, vulvitis, ovarian torsion, PID, kidney stone, placenta abruption, this is not meant to be an all-inclusive list EKG interpreted by me (3pts min.). @ -Yes which demonstrates sinus rhythm with a rate of 86. [place] interval 174. QRS 101. QTc of 407. No acute ST segment elevations or depressions X-rays interpreted by me (1pt min.). @ -Yes which demonstrates no acute process CT interpreted by me (1pt min.). @ -None done U/S interpreted by me (1pt. min.). @ -None done What testing was considered but not performed or refused? (CT, X-rays, U/S, labs)? Why? @ -None What meds were considered but not given or refused? Why? @ -None Did you discuss the management of the patient with other professionals (professionals i.e. , PA, [facility], lab, RT, psych nurse, oncology social work, cnc mill programmer, teacher, combat information center officer, director of casework department)? Give summary @ -No Was smoking cessation discussed for >3mins.? @ -No Was critical care preformed (if so, how long)? @ -No Were there social determinants of health that impacted care today? How? (Homelessness, low income, unemployed, alcoholism, drug addiction, transportation, low edu. Level, literacy, decrease access to med. care, fci, rehab)? @ -No Was there de-escalation of care discussed even if they declined (Discuss DNR or withdrawal of care, Hospice)? DNR status @ -No What co-morbidities impacted this encounter? (DM, HTN, Smoking, COPD, CAD, Cancer, CVA, ARF, Chemo, Hep., AIDS, mental health diagnosis, sleep apnea, m orbid obesity)? @ -Chronic urinary retention Was patient admitted / discharged? Hospital course, mention meds given and route, prescriptions, significant lab abnormalities, going to OR and other pert inent info. @ -Upon arrival patient seen and evaluated in bed 7. Thorough history and physical exam was performed. IV access was established and laboratory studies are conducted. Chest x-ray was performed. Patient is not in heart failure. Creatinine is normal. Patient does have a bladder scan performed which demonstrates greater than 900 cc in her bladder. We did place a Villalobos with 1200 cc output. Patient will be discharged at this time. Instructed follow-up with urology in 1 week for further management of her urinary retention. Return for any new or worsening symptoms. Patient agreeable to plan she was discharged in stable condition Undiagnosed new problem with uncertain prognosis? @ -No Drug Therapy requiring intensive monitoring for toxicity (Heparin, Nitro, Insulin, Cardizem)? @ -No Were any procedures done? @ -No Diagnosis/symptom? @ -Acute bilateral lower extremity edema, acute urinary retention Acute, or Chronic, or Acute on Chronic? @ -Acute Uncomplicated (without systemic symptoms) or Complicated (systemic symptoms)? @ -Complicated Side effects of treatment? @ -No Exacerbation, Progression, or Severe Exacerbation? @ -No Poses a threat to life or bodily function? How? (Chest pain, [place], [place], pneumonia, PE, COPD, DKA, ARF, appy, cholecystitis, CVA, Diverticulitis, Homicidal, Suicidal, threat to staff... and all critical care pts) @ -No - Lab Data Result diagrams: 11/23/24 20:25 11/23/24 20:25 Lab Results 11/23/24 11/23/24 11/23/24 Range/Units 20:25 20:25 20:25 WBC 8.24 (4.50-10.00) 10*3/uL RBC 4.19 (4.10-5.20) 10*6/uL Hgb 13.1 (12.0-15.0) g/dL Hct 38.8 (37.2-46.3) % MCV 92.6 (80.0-97.0) fL MCH 31.3 (27.0-32.0) pg MCHC 33.8 (32.0-37.0) g/dL Plt Count 266 (140-440) 10*3/uL MPV 10.0 (9.5-12.2) fL Immature Gran % (Auto) 0.1 % Neutrophils % 61.4 % Lymphocytes % 28.8 % Monocytes % 7.9 % Eosinophils % 1.2 % Basophils % 0.6 % Immature Gran # 0.01 (0.00-0.04) 10*3/uL Neutrophils # 5.06 (1.80-7.70) 10*3/uL Lymphocytes # 2.37 (0.90-5.00) 10*3/uL Monocytes # 0.65 (0.20-1.00) 10*3/uL Eosinophils # 0.10 (0.04-0.35) 10*3/uL Basophils # 0.05 (0.00-0.10) 10*3/uL PT 11.2 (10.0-12.5) sec INR 1.0 (<1.2) APTT 22.2 (22.0-30.0) sec Sodium 142 (137-145) mmol/L Potassium 4.0 (3.5-5.1) mmol/L Chloride 104 (98-107) mmol/L Carbon Dioxide 26 (22-30) mmol/L Anion Gap 12 mmol/L BUN 10 (7-17) mg/dL Creatinine 0.64 (0.52-1.04) mg/dL Est GFR (CKD-EPI)AfAm >90 (>60 ml/min/1.73 sqM) Est GFR (CKD-EPI)NonAf 81 (>60 ml/min/1.73 sqM) Glucose 99 (74-99) mg/dL Plasma Lactic Acid Anmol (0.7-2.0) mmol/L Calcium 10.2 (8.4-10.2) mg/dL Total Bilirubin 1.1 (0.2-1.3) mg/dL AST 26 (14-36) U/L ALT 12 (4-34) U/L Alkaline Phosphatase 104 (38-126) U/L Troponin I (0.000-0.034) ng/mL NT-Pro-B Natriuret Pep 41 pg/mL Total Protein 6.9 (6.3-8.2) g/dL Albumin 4.2 (3.5-5.0) g/dL Urine Color Urine Appearance (Clear) Urine pH (5.0-8.0) Ur Specific [place] (1.001-1.035) Urine Protein (Negative) Urine Glucose (UA) (Negative) Urine Ketones (Negative) Urine Blood (Negative) Urine Nitrite (Negative) Urine Bilirubin (Negative) Urine Urobilinogen (<2.0) mg/dL Ur Leukocyte Esterase (Negative) 11/23/24 11/23/24 11/23/24 Range/Units 20:25 20:25 22:04 WBC (4.50-10.00) 10*3/uL RBC (4.10-5.20) 10*6/uL Hgb (12.0-15.0) g/dL Hct (37.2-46.3) % MCV (80.0-97.0) fL MCH (27.0-32.0) pg MCHC (32.0-37.0) g/dL Plt Count (140-440) 10*3/uL MPV (9.5-12.2) fL Immature Gran % (Auto) % Neutrophils % % Lymphocytes % % Monocytes % % Eosinophils % % Basophils % % Immature Gran # (0.00-0.04) 10*3/uL Neutrophils # (1.80-7.70) 10*3/uL Lymphocytes # (0.90-5.00) 10*3/uL Monocytes # (0.20-1.00) 10*3/uL Eosinophils # (0.04-0.35) 10*3/uL Basophils # (0.00-0.10) 10*3/uL PT (10.0-12.5) sec INR (<1.2) APTT (22.0-30.0) sec Sodium (137-145) mmol/L Potassium (3.5-5.1) mmol/L Chloride (98-107) mmol/L Carbon Dioxide (22-30) mmol/L Anion Gap mmol/L BUN (7-17) mg/dL Creatinine (0.52-1.04) mg/dL Est GFR (CKD-EPI)AfAm (>60 ml/min/1.73 sqM) Est GFR (CKD-EPI)NonAf (>60 ml/min/1.73 sqM) Glucose (74-99) mg/dL Plasma Lactic Acid Anmol 1.0 (0.7-2.0) mmol/L Calcium (8.4-10.2) mg/dL Total Bilirubin (0.2-1.3) mg/dL AST (14-36) U/L ALT (4-34) U/L Alkaline Phosphatase (38-126) U/L Troponin I <0.012 (0.000-0.034) ng/mL NT-Pro-B Natriuret Pep pg/mL Total Protein (6.3-8.2) g/dL Albumin (3.5-5.0) g/dL Urine Color Colorless Urine Appearance Clear (Clear) Urine pH 7.5 (5.0-8.0) Ur Specific [place] 1.003 (1.001-1.035) Urine Protein Negative (Negative) Urine Glucose (UA) Negative (Negative) Urine Ketones Negative (Negative) Urine Blood Negative (Negative) Urine Nitrite Negative (Negative) Urine Bilirubin Negative (Negative) Urine Urobilinogen <2.0 (<2.0) mg/dL Ur Leukocyte Esterase Negative (Negative) Disposition Clinical Impression: Urinary retention, Abdominal pain Disposition: HOME SELF-CARE Condition: Stable Instructions (If sedation given, give patient instructions): Chronic Urinary Retention in Women (ED) Additional Instructions: Please follow-up with the urologist within 1 week for reevaluation of your retention. Is patient prescribed a controlled substance at d/c from ED?: No Referrals: Kitty Baez DO [Primary Care Provider] - 1-2 days Roge Lin MD [STAFF PHYSICIAN] - 1-2 days Time of Disposition: 22:58
[2024-11-23 23:22] VITALS: BP 146/75; PULSE 89; TEMP 97.8
== END 2024-11-23 23:27 | disposition home or self-care (01) ==
LOC: EC 19:13
DX: R33.9 Retention of urine, unspecified (principal); R10.9 Unspecified abdominal pain; Z87.891 Personal history of nicotine dependence; Z88.0 Allergy status to penicillin; Z88.1 Allergy status to other antibiotic agents; Z88.2 Allergy status to sulfonamides; Z88.8 Allergy status to other drugs, medicaments and biological substances
CPT/HCPCS: 36415; 51702; 51798; 71046; 80053; 81003; 83605; 83880; 84484; 85025; 85610; 85730; 99284